=== PATIENT | female | born 1980 | race African-American/Black ===

== ENCOUNTER → 2017-04-28 | Outpatient (REF) | payer OTHER | LOC: M LABNEURO 12:52 | DX: G43.909 Migraine, unspecified, not intractable, without status migrainosus (principal); G40.909 Epilepsy, unspecified, not intractable, without status epilepticus ==

== ENCOUNTER 2017-11-03 19:08 | Emergency (ER) | payer OTHER, MEDICAID ==
[2017-11-03] MEDS: PERCOCET 5MG/325MG TAB PO (20:18)
== END 2017-11-03 20:19 | disposition home or self-care (01) ==
LOC: M ED 19:08
DX: M54.41 Lumbago with sciatica, right side (principal); G89.29 Other chronic pain; M79.7 Fibromyalgia; Z86.69 Personal history of other diseases of the nervous system and sense organs; Z98.0 Intestinal bypass and anastomosis status; Z98.890 Other specified postprocedural states; Z88.8 Allergy status to other drugs, medicaments and biological substances; Z91.040 Latex allergy status; Z79.899 Other long term (current) drug therapy
CPT/HCPCS: 99282

== ENCOUNTER → 2017-12-06 | Outpatient (CLI) | payer OTHER | LOC: M PAIN 10:15 | DX: M79.1 Myalgia (principal); M50.20 Other cervical disc displacement, unspecified cervical region; K21.9 Gastro-esophageal reflux disease without esophagitis; G43.709 Chronic migraine without aura, not intractable, without status migrainosus; Z98.84 Bariatric surgery status; Z87.891 Personal history of nicotine dependence; Z79.899 Other long term (current) drug therapy; Z91.040 Latex allergy status; Z88.8 Allergy status to other drugs, medicaments and biological substances | CPT/HCPCS: G0463 ==

== ENCOUNTER → 2017-12-17 | Outpatient (CLI) | payer OTHER ==
[~2017-12-17] MED LIST: BUPIVACAINE HCL 0.25% 10 ML VIAL As Ordered; BUPIVACAINE HCL 0.25% 30 ML VIAL As Ordered; TRIAMCINOLONE ACETONIDE SUSP 40 MG/ML VIAL (J3301) As Ordered; diazePAM 5 MG TAB As Ordered; oxyCODONE 5MG TAB As Ordered
== END ==
LOC: M PAIN 11:15
DX: M79.10 Myalgia, unspecified site (principal); K21.9 Gastro-esophageal reflux disease without esophagitis; R56.9 Unspecified convulsions; G43.709 Chronic migraine without aura, not intractable, without status migrainosus; Z98.84 Bariatric surgery status; Z87.891 Personal history of nicotine dependence; Z90.49 Acquired absence of other specified parts of digestive tract; Z79.899 Other long term (current) drug therapy; Z91.040 Latex allergy status; Z88.8 Allergy status to other drugs, medicaments and biological substances
CPT/HCPCS: J3301

== ENCOUNTER → 2018-01-07 | Outpatient (CLI) | payer OTHER | LOC: M PAIN 09:30 | DX: M50.20 Other cervical disc displacement, unspecified cervical region (principal); M79.7 Fibromyalgia; R56.9 Unspecified convulsions; G43.909 Migraine, unspecified, not intractable, without status migrainosus; Z79.899 Other long term (current) drug therapy; Z88.8 Allergy status to other drugs, medicaments and biological substances; Z91.040 Latex allergy status; Z98.84 Bariatric surgery status; Z87.891 Personal history of nicotine dependence | CPT/HCPCS: G0463 ==

== ENCOUNTER → 2018-01-24 | Outpatient (CLI) | payer OTHER ==
[~2018-01-24] MED LIST changes: -BUPIVACAINE HCL 0.25% 10 ML VIAL As Ordered; -BUPIVACAINE HCL 0.25% 30 ML VIAL As Ordered; +ISOVUE-M 300 61% 15ML VIAL (Q9967) As Ordered; +LIDOCAINE 1% SDV INJ 30 ML VIAL As Ordered; -TRIAMCINOLONE ACETONIDE SUSP 40 MG/ML VIAL (J3301) As Ordered; +methylPREDNISolone SUSP 40 MG/ML (DEPO-medrol) VIAL (J1030) As Ordered
== END ==
LOC: M PAIN 11:45
DX: G89.29 Other chronic pain (principal); M50.10 Cervical disc disorder with radiculopathy, unspecified cervical region; M79.7 Fibromyalgia; R56.9 Unspecified convulsions; G43.909 Migraine, unspecified, not intractable, without status migrainosus; Z79.899 Other long term (current) drug therapy; Z88.8 Allergy status to other drugs, medicaments and biological substances; Z91.040 Latex allergy status; Z87.891 Personal history of nicotine dependence; Z98.84 Bariatric surgery status
CPT/HCPCS: J1030

== ENCOUNTER → 2018-02-16 | Outpatient (CLI) | payer OTHER | LOC: M PAIN 09:45 | DX: M50.10 Cervical disc disorder with radiculopathy, unspecified cervical region (principal); M50.20 Other cervical disc displacement, unspecified cervical region; M79.7 Fibromyalgia; R56.9 Unspecified convulsions; G43.909 Migraine, unspecified, not intractable, without status migrainosus; Z79.899 Other long term (current) drug therapy; Z88.8 Allergy status to other drugs, medicaments and biological substances; Z91.040 Latex allergy status; Z98.84 Bariatric surgery status; Z87.891 Personal history of nicotine dependence | CPT/HCPCS: G0463 ==

== ENCOUNTER → 2018-03-21 | Outpatient (CLI) | payer OTHER ==
[~2018-03-21] MED LIST changes: +/ACETCOD2T PO; +/HCTZ25TA PO; +AMBI5TAB PO; +BIRTH CONTROL PILL PO; +FAMO20TA PO; +IBUPPOW25 PO; -ISOVUE-M 300 61% 15ML VIAL (Q9967) As Ordered; +KEPP1000 PO; +KEPP500T4 PO; +LIDO1DIS2 TOP; -LIDOCAINE 1% SDV INJ 30 ML VIAL As Ordered; +LISIPOW PO; +LUNE1TAB5 PO; +LYRI75CA PO; +METO1TAB32 PO; +PERC5TAB12 PO; +PREV1CAP PO; +PROZ20CA11 PO; +RELP40TA PO; +ROBA500T PO; +SERO50TA PO; +TIZA2TA PO; +TOPA200T PO; +ZONI100C2 PO; -diazePAM 5 MG TAB As Ordered; -methylPREDNISolone SUSP 40 MG/ML (DEPO-medrol) VIAL (J1030) As Ordered; -oxyCODONE 5MG TAB As Ordered
== END ==
LOC: M PAIN 11:30
PROVIDERS: ATTEND Anesthesiology
DX: Z53.29 Procedure and treatment not carried out because of patient's decision for other reasons (principal)

== ENCOUNTER → 2018-04-01 | Outpatient (CLI) | payer OTHER ==
[~2018-04-01] MED LIST changes: +ISOVUE-M 300 61% 15ML VIAL (Q9967) As Ordered ONE; +LIDOCAINE 1% SDV INJ 30 ML VIAL As Ordered ONE; +diazePAM 5 MG TAB As Ordered ONE; +methylPREDNISolone SUSP 40 MG/ML (DEPO-medrol) VIAL (J1030) As Ordered ONE; +oxyCODONE 5MG TAB As Ordered ONE
--- NOTE | 2018-04-01 15:04 | REP ---
Partial cervical spine series: Two views. History: Cervical epidural injection for pain. 15 seconds of fluoroscopy time is reported. Findings: A sequence of two last image hold fluoroscopically obtained spot radiographs of the cervicothoracic junction document needle position and contrast injection associated with cervical epidural injection procedure. Electronically Signed by Tony Caruso MD 04/01/2018 02:56 P
--- NOTE | 2018-04-18 00:04 | ECWPNPC ---
PATIENT NAME: BRYCE GUTIERREZ : 1980 GENDER: FEMALE VISIT DATE: 04/01/2018 DISCHARGE DATE: 04/01/18 1201 VISIT LOCKED DATE TIME: PHYSICIAN: JOSIE RAMIREZ MD RESOURCE: JOSIE RAMIREZ MD REASON FOR APPOINTMENT 1. SASHA HISTORY OF PRESENT ILLNESS HISTORY OF PRESENT ILLNESS: PAIN THE PATIENT DESCRIBES THE PAIN... FALL RISK SCREENING: SCREENING :NO FALLS IN THE PAST YEAR CURRENT MEDICATIONS TAKING TYLENOL WITH CODEINE #3 300-30 MG TABLET 1 TABLET NEEDED ORALLY EVERY 6 HRS, NOTES: 03/29/18 TAKING KEPPRA 500 MG TABLET 1 TABLET ORALLY EVERY 12 HRS, NOTES: 04/01/18 AM TAKING KEPPRA 1000 MG TABLET 1 TABLET ORALLY QHS, NOTES: 03/31/18 TAKING LYRICA 200 MG CAPSULE 1 CAPSULE ORALLY TWICE A DAY, NOTES: 03/31/18 TAKING AMBIEN 10 MG TABLET 1 TABLET AT BEDTIME NEEDED ORALLY ONCE A DAY, NOTES: NONE LATELY TAKING PROZAC 20 MG CAPSULE 1 CAPSULE IN THE MORNING ONCE A DAY, NOTES: 04/01/18 AM TAKING ZONISAMIDE 100 MG CAPSULE 2 CAPSULES TWICE A DAY, NOTES: 04/01/18 TAKING TIZANIDINE HCL 4 MG TABLET 1 TABLET NEEDED THREE TIMES A DAY, NOTES: 03/29/18 TAKING CALCIUM + D3 600-800 MG-UNIT TABLET 1 TABLET WITH A MEAL TWICE A DAY, NOTES: 04/01/18 TAKING MULTI COMPLETE - CAPSULE ORALLY DAILY, NOTES: 04/01/18 TAKING CLARITIN 10 MG TABLET 1 TABLET ORALLY ONCE A DAY, NOTES: 04/01/18 TAKING AMERGE 2.5 MG TABLET 1 TABLET NEEDED ONE TIME ORALLY ONCE A DAY, NOTES: 03/29/18 TAKING MAY HAVE - - CYANOCOBALAMIN 1000 MCG INJECTION ONCE A WEEK, NOTES: 03/28/18 NOT-TAKING TIZANIDINE HCL 2 MG TABLET 1 TABLET NEEDED THREE TIMES A DAY NOT-TAKING VITAMIN B12 500 MCG TABLET 2 TABLETS ORALLY ONCE A DAY NOT-TAKING ZOLMITRIPTAN 5 MG TABLET 1 TABLET NEEDED ONE TIME ORALLY ONCE A DAY, NOTES: UNSURE OF DOSE NOT-TAKING TRAMADOL HCL 50 MG TABLET 1-2 ORALLY EVERY 6 HRS MDD6 #100 TAB SHOULD LAST 30 DAYS, NOTES: STOPPED TAKING NOT-TAKING RELPAX 40 MG TABLET 1 TABLET NEEDED ONE TIME ORALLY ONCE A DAY NOT-TAKING LIDODERM 5 % PATCH 1 PATCH TO INTACT SKIN REMOVE AFTER 12 HOURS EXTERNALLY ONCE A DAY NOT-TAKING ROBAXIN 500 MG TABLET 1 TABLETS ORALLY BID NOT-TAKING TOPAMAX 200 MG TABLET 1 TABLET ORALLY TWICE A DAY MEDICATION LIST REVIEWED AND RECONCILED WITH THE PATIENT PAST MEDICAL HISTORY FIBROMYALGIA GERD SEIZURES LOW BACK AND NECK PAIN ARTHRITIS IN NECK CHRONIC MIGRAINES ALLERGIES LATEX (FOR ALLERGY USE ONLY): ANAPHYLAXIS: ALLERGY MEPERIDINE HCL: SEIZURES: ALLERGY PHENYTOIN: SEIZURES: ALLERGY GABAPENTIN: DIZZINESS AND ANGER: ALLERGY SURGICAL HISTORY GASTRIC BYPASS 06-27-2015 GALL BLADDER 09-13-2006 TUBAL 08-17-2006 MARLENY -ESTIVEN ([place]) 03/2016 FAMILY HISTORY FATHER: 36 YRS MOTHER: ALIVE 59 YRS 1 BROTHER(S) , 6 SISTER(S) - HEALTHY. 1 SON(S) , 1 DAUGHTER(S) - HEALTHY. MOTHER - GOUT, ARTHRITIS, ASTHMASON- SICKLE CELL ANEMIA. SOCIAL HISTORY GENERAL: TOBACCO USE ARE YOU A:FORMER SMOKER HOW LONG HAS IT BEEN SINCE YOU LAST SMOKED?> 10 YEARS RECREATIONAL DRUG USE: NEVER DRUG USE?NO CAFFEINE: YES CAFFEINE USE?YES HOW OFTEN AND HOW MUCH? ONE CUP OF COFFEE DRUZE [id number] NONE LANGUAGE LANGUAGES SPOKEN:BRITISH LEARNING BARRIERS / SPECIAL NEEDS ABILITY TO UNDERSTAND VERBAL INSTRUCTIONS AVERAGE, ABILITY TO UNDERSTAND WRITTEN INSTRUCTIONS AVERAGE, KNOWLEDGE OF EDUCATIONAL NEEDS/TREATMENT PLAN AVERAGE, LEARNING PREFERENCE NO PREFERENCE, ORIENTED TO PLAN OF CARE: PATIENT, PAIN MANAGEMENT PATIENT. PAIN CLINIC PFS, CLERGY, PUBLIC HEALTH REFERRALS WAS THE PROVIDER NOTIFIED OF ANY PERTINENT INFO?YES HAS THE PATIENT BEEN EDUCATED REGARDING HIS/HER PLAN OF CARE?YES HAS THE PATIENT BEEN EDUCATED REGARDING PAIN, THE RISK FOR PAIN, THE IMPORTANCE OF EFFECTIVE PAIN MANAGEMENT, AND THE PAIN ASSESSMENT PROCESS?YES ADVANCE DIRECTIVE ADVANCE DIRECTIVE DISCUSSED WITH PATIENT:YES NO ADVANCED DIRECTIVE, PT DECLINES HCP INFO AT THIS TIME. REVIEWED WITH PATIENT 12/06/17 1033 JSREVIEWED WITH PATIENT 01/07/18 0955 JSREVIEWED WITH PATIENT 02/16/18 1006 JS. HOSPITALIZATION/MAJOR DIAGNOSTIC PROCEDURE SEIZURES 11-25-2011 REVIEW OF SYSTEMS REVIEWED BY: PROVIDER: . CONSTITUTIONAL: ANY CHANGE IN YOUR MEDICAL CONDITION? NO . CHILLS NO . FEVER NO . INFECTION: DO YOU HAVE NEW INFECTIONS? NO . DO YOU HAVE HISTORY OF MRSA? NO . MUSCULOSKELETAL: ANY NEW PATTERNS OF PAIN OR NUMBNESS? NO . GASTROENTEROLOGY: ANY NEW CHANGE IN BOWEL CONTROL? NO . GENITOURINARY: ANY NEW CHANGE IN BLADDER CONTROL? NO . IS THERE A CHANCE YOU COULD BE ? NO . HEMATOLOGY/LYMPH: DO YOU TAKE ANY BLOOD THINNERS? (FOR EXAMPLE- COUMADIN, PLAVIX, AGGRENOX, PLATEL, PRADAXA, OR XARELTO) NO . WHEN WAS YOUR LAST DOSE? DATE: TIME: . NEUROLOGY: HAVE YOU FALLEN IN THE PAST 12 MONTHS? NO . ANY NEW EXTREMITY NUMBNESS OR WEAKNESS? NO . CARDIOLOGY: DO YOU HAVE A PACEMAKER OR DEFIBRILLATOR? NO . RESPIRATORY: HAVE YOU BEEN SICK IN THE PAST WEEK? NO . FEVER NO . FLU LIKE SYMPTOMS? NO . COUGH NO . INTEGUMENTARY: DO YOU HAVE ANY RASHES OR OPEN SORES? NO . ALLERGIC/IMMUNO: ARE YOU ALLERGIC TO IV DYE? NO . ANY NEW ALLERGIES? NO . PSYCHIATRIC: DO YOU HAVE THOUGHTS OF HURTING YOURSELF OR SOMEONE ELSE? NO . ARE YOU ABUSED, NEGLECTED, OR IN AN UNSAFE ENVIRONMENT? NO . ENDOCRINOLOGY: ARE YOU DIABETIC? NO . OTHER: DO YOU NEED ANY PRESCRIPTIONS? NO . IF YES, PLEASE LIST: ____ . ANY NEW PROBLEMS WITH YOUR MEDICATIONS? NO . WHEN DID YOU LAST EAT? 03/31/18 1830 . WHEN DID YOU LAST DRINK? 04/01/18 0530 . WHAT DID YOU LAST DRINK? WATER . NAME OF PERSON DRIVING YOU HOME? SAVAUN . DO YOU HAVE ANY OTHER QUESTIONS OR CONCERNS NO . VITAL SIGNS WT 174 LBS, HT 61 IN, BMI 32.87 INDEX, BP 136/70 MM HG, HR 84 /MIN, RR 16 /MIN, TEMP 98.6 F, OXYGEN SAT % 98%, NA INITIALS SC 09:25, REVIEWED BY: EM. ASSESSMENTS CERVICAL DISC DISORDER WITH RADICULOPATHY OF CERVICAL REGION - M50.10 (PRIMARY) PROCEDURES PN CERVICAL EPIDURAL PRE PROCEDURE DIAGNOSIS CERVICAL DISC DISORDER WITH RADICULOPATHY POST PROCEDURE DIAGNOSIS CERVICAL DISC DISORDER WITH RADICULOPATHY PROCEDURE CERVICAL EPIDURAL STEROID INJECTION UNDER FLUOROSCOPIC GUIDANCE SURGEON DR. JOSIE RAMIREZ ALL ROUND BUTCHER NONE ANESTHESIA LOCAL PRE PROCEDURE NOTE THE PATIENT HAS A HISTORY OF CHRONIC CERVICAL PAIN. I EVALUATE THE PATIENT AND REVIEWED THE CHART. I WENT OVER THE RISKS, ALTERNATIVES, AND BENEFITS ASSOCIATED WITH THIS PROCEDURE. THE PATIENT WOULD LIKE TO PROCEED AND GIVE CONSENT TO PERFORMED THE PROCEDURE. THE PATIENT DENIES UNEXPLAINABLE WEIGHT LOSS, FEVER, CHILLS, OR NEW CHANGES IN URINARY OR BOWEL CONTROL DESCRIPTION OF PROCEDURE THE PATIENT WAS BROUGHT TO THE PROCEDURE ROOM AND PLACED IN THE PRONE POSITION. THE CERVICOTHORACIC AREA WAS CLEANED WITH BETADINE SOLUTION AND DRAPED ASEPTICALLY. THE PROCEDURE WAS DONE UNDER STERILE CONDITIONS. I CHECKED LATERALITY AND THE LEVEL WHERE THE PROCEDURE WAS GOING TO BE PERFORMED WITH THE PATIENT AND THE SUPPORTING STAFF AT THE MOMENT OF THE TIME OUT IN THE PROCEDURE ROOM. UNDER FLUOROSCOPIC GUIDANCE, THE TARGET WAS SELECTED AT THE INTERLAMINAR LEVEL OF C7-T1. LIDOCAINE WAS USED TO NUMB THE SKIN AND THE SUBCUTANEOUS TISSUE BELOW IT. EPIDURAL TUOHY NEEDLE 17-GAUGE WAS ADVANCED UNDER FLUOROSCOPIC GUIDANCE AND FOLLOWING PATIENT FEEDBACK UNTIL THE EPIDURAL SPACE WAS REACHED 6 CM DEEP INTO THE SKIN BY THE LOSS OF RESISTANCE TECHNIQUE. ISOVUE M DYE 30%, 0.25 ML, WAS INJECTED SHOWING ADEQUATE SPREAD OF THE DYE. THEN, A SOLUTION OF 3 ML OF NORMAL SALINE WITH DEPO-MEDROL 60 MG WAS INJECTED SLOWLY FOLLOWING PATIENT FEEDBACK. THERE WAS NO EVIDENCE OF BLOOD, PARESTHESIA OR CEREBROSPINAL FLUID DURING THE PROCEDURE. THE PATIENT WAS SENT TO THE RECOVERY ROOM. THE PATIENT WAS MOVING THE EXTREMITIES AND DOING WELL. THERE WAS NO COMPLICATION DURING THE PROCEDURE. FLUOROSCOPY TIME WAS 15 SECONDS POST PROCEDURE NOTE THE PATIENT WILL BE SEEN IN A FOLLOW UP IN THE NEXT FEW WEEKS. INSTRUCTIONS WERE GIVEN, QUESTIONS WERE ANSWERED, AND THE PATIENT EXPRESSED UNDERSTANDING AND AGREES WITH THE PLAN. I, SHELLI REYES, DOCUMENTED THE ABOVE INFORMATION ACTING A SCRIBE FOR DR. RAMIREZ. I HAVE REVIEWED THE ABOVE DOCUMENT, WRITTEN BY SHELLI VARGAS AND I VERIFY THAT IT IS ACCURATE. PROCEDURE CODES 6045F RADXPS IN END [id number] PXD [id number] CERVICAL/THORACIC W/ IMAGING DISPOSITION & COMMUNICATION FOLLOW UP 3 WEEKS ELECTRONICALLY SIGNED BY JOSIE RAMIREZ MD, MD ON 04/17/2018 AT 05:58 PM EST DISCLAIMER : THIS IS A VISIT SUMMARY EXTRACTED FROM THE [facility] CHART. IT IS NOT A COPY OF THE [facility] PROGRESS NOTE. MTDD
== END ==
LOC: M PAIN 09:30
PROVIDERS: ATTEND Anesthesiology
DX: G89.29 Other chronic pain (principal); M50.10 Cervical disc disorder with radiculopathy, unspecified cervical region; M79.7 Fibromyalgia; R56.9 Unspecified convulsions; G43.909 Migraine, unspecified, not intractable, without status migrainosus; Z79.899 Other long term (current) drug therapy; Z88.8 Allergy status to other drugs, medicaments and biological substances; Z91.040 Latex allergy status; Z98.84 Bariatric surgery status; Z87.891 Personal history of nicotine dependence
CPT/HCPCS: 62321; J1030; Q9967

== ENCOUNTER → 2018-05-09 | Outpatient (CLI) | payer OTHER ==
[~2018-05-09] MED LIST changes: -ISOVUE-M 300 61% 15ML VIAL (Q9967) As Ordered ONE; -LIDOCAINE 1% SDV INJ 30 ML VIAL As Ordered ONE; -diazePAM 5 MG TAB As Ordered ONE; -methylPREDNISolone SUSP 40 MG/ML (DEPO-medrol) VIAL (J1030) As Ordered ONE; -oxyCODONE 5MG TAB As Ordered ONE
--- NOTE | 2018-05-23 00:36 | ECWPNPC ---
PATIENT NAME: BRYCE GUTIERREZ : 1980 GENDER: FEMALE VISIT DATE: 05/09/2018 DISCHARGE DATE: 05/09/18 1046 VISIT LOCKED DATE TIME: PHYSICIAN: ARAVIND ESPINOZA RESOURCE: ARAVIND ESPINOZA REASON FOR APPOINTMENT 1. POST PROC HISTORY OF PRESENT ILLNESS HISTORY OF PRESENT ILLNESS: HERE FOR POST PROCEDURE F/U.HAD SASHA C7/T1 ON 04/01/18.REPORTING 7-14 DAYS IMPROVEMENT IN NECK AND BILATERAL ARM PAIN POST PROCEDURE.RATING PAIN VAS 9/10. PAIN THE PATIENT DESCRIBES THE PAIN... FALL RISK SCREENING: SCREENING : NO FALLS IN THE PAST YEAR. CURRENT MEDICATIONS TAKING TYLENOL WITH CODEINE #3 300-30 MG TABLET 1 TABLET NEEDED ORALLY EVERY 6 HRS TAKING KEPPRA 500 MG TABLET 1 TABLET ORALLY EVERY 12 HRS TAKING KEPPRA 1000 MG TABLET 1 TABLET ORALLY QHS TAKING LYRICA 200 MG CAPSULE 1 CAPSULE ORALLY TWICE A DAY TAKING PROZAC 20 MG CAPSULE 1 CAPSULE IN THE MORNING ONCE A DAY TAKING ZONISAMIDE 100 MG CAPSULE 2 CAPSULES TWICE A DAY TAKING TIZANIDINE HCL 4 MG TABLET 1 TABLET NEEDED THREE TIMES A DAY TAKING CALCIUM + D3 600-800 MG-UNIT TABLET 1 TABLET WITH A MEAL TWICE A DAY TAKING MULTI COMPLETE - CAPSULE ORALLY DAILY TAKING CLARITIN 10 MG TABLET 1 TABLET ORALLY ONCE A DAY TAKING AMERGE 2.5 MG TABLET 1 TABLET NEEDED ONE TIME ORALLY ONCE A DAY TAKING MAY HAVE - - CYANOCOBALAMIN 1000 MCG INJECTION ONCE A WEEK TAKING CYMBALTA 20 MG CAPSULE DELAYED RELEASE PARTICLES 1 CAPSULE ORALLY BEFORE BEDTIME TAKING SEROQUEL 50 MG TABLET 1 TABLET ORALLY BEFORE BEDTIME NOT-TAKING AMBIEN 10 MG TABLET 1 TABLET AT BEDTIME NEEDED ORALLY ONCE A DAY NOT-TAKING TIZANIDINE HCL 2 MG TABLET 1 TABLET NEEDED THREE TIMES A DAY NOT-TAKING VITAMIN B12 500 MCG TABLET 2 TABLETS ORALLY ONCE A DAY NOT-TAKING ZOLMITRIPTAN 5 MG TABLET 1 TABLET NEEDED ONE TIME ORALLY ONCE A DAY, NOTES: UNSURE OF DOSE NOT-TAKING TRAMADOL HCL 50 MG TABLET 1-2 ORALLY EVERY 6 HRS MDD6 #100 TAB SHOULD LAST 30 DAYS, NOTES: STOPPED TAKING NOT-TAKING RELPAX 40 MG TABLET 1 TABLET NEEDED ONE TIME ORALLY ONCE A DAY NOT-TAKING LIDODERM 5 % PATCH 1 PATCH TO INTACT SKIN REMOVE AFTER 12 HOURS EXTERNALLY ONCE A DAY NOT-TAKING ROBAXIN 500 MG TABLET 1 TABLETS ORALLY BID NOT-TAKING TOPAMAX 200 MG TABLET 1 TABLET ORALLY TWICE A DAY MEDICATION LIST REVIEWED AND RECONCILED WITH THE PATIENT PAST MEDICAL HISTORY FIBROMYALGIA GERD SEIZURES LOW BACK AND NECK PAIN ARTHRITIS IN NECK CHRONIC MIGRAINES ALLERGIES LATEX (FOR ALLERGY USE ONLY): ANAPHYLAXIS: ALLERGY MEPERIDINE HCL: SEIZURES: ALLERGY PHENYTOIN: SEIZURES: ALLERGY GABAPENTIN: DIZZINESS AND ANGER: ALLERGY TRAMADOL HCL: SWEATING & SHAKINESS: ALLERGY SURGICAL HISTORY GASTRIC BYPASS 06-27-2015 GALL BLADDER 09-13-2006 TUBAL 08-17-2006 TUMMY -TUCK ([place]) 03/2016 FAMILY HISTORY FATHER: 36 YRS MOTHER: ALIVE 59 YRS 1 BROTHER(S) , 6 SISTER(S) - HEALTHY. 1 SON(S) , 1 DAUGHTER(S) - HEALTHY. MOTHER - GOUT, ARTHRITIS, ASTHMASON- SICKLE CELL ANEMIA. SOCIAL HISTORY GENERAL: TOBACCO USE ARE YOU A:FORMER SMOKER HOW LONG HAS IT BEEN SINCE YOU LAST SMOKED?> 10 YEARS RECREATIONAL DRUG USE: NEVER DRUG USE?NO CAFFEINE: YES CAFFEINE USE?YES HOW OFTEN AND HOW MUCH? ONE CUP OF COFFEE MORMON [id number] NONE LANGUAGE LANGUAGES SPOKEN:WALLISIAN LEARNING BARRIERS / SPECIAL NEEDS ABILITY TO UNDERSTAND VERBAL INSTRUCTIONS AVERAGE, ABILITY TO UNDERSTAND WRITTEN INSTRUCTIONS AVERAGE, KNOWLEDGE OF EDUCATIONAL NEEDS/TREATMENT PLAN AVERAGE, LEARNING PREFERENCE NO PREFERENCE, ORIENTED TO PLAN OF CARE: PATIENT, PAIN MANAGEMENT PATIENT. PAIN CLINIC PFS, CLERGY, PUBLIC HEALTH REFERRALS WAS THE PROVIDER NOTIFIED OF ANY PERTINENT INFO?YES HAS THE PATIENT BEEN EDUCATED REGARDING HIS/HER PLAN OF CARE?YES HAS THE PATIENT BEEN EDUCATED REGARDING PAIN, THE RISK FOR PAIN, THE IMPORTANCE OF EFFECTIVE PAIN MANAGEMENT, AND THE PAIN ASSESSMENT PROCESS?YES ADVANCE DIRECTIVE ADVANCE DIRECTIVE DISCUSSED WITH PATIENT:YES NO ADVANCED DIRECTIVE, PT DECLINES HCP INFO AT THIS TIME. REVIEWED WITH PATIENT 12/06/17 1033 JSREVIEWED WITH PATIENT 01/07/18 0955 JSREVIEWED WITH PATIENT 02/16/18 1006 JSREVIEWED WITH PATIENT 05/09/18 1005 JS. HOSPITALIZATION/MAJOR DIAGNOSTIC PROCEDURE SEIZURES 11-25-2011 REVIEW OF SYSTEMS REVIEWED BY: PROVIDER: ARAVIND LAYTON . CONSTITUTIONAL: ANY CHANGE IN YOUR MEDICAL CONDITION? NO . CHILLS NO . FEVER NO . INFECTION: DO YOU HAVE NEW INFECTIONS? NO . DO YOU HAVE HISTORY OF MRSA? NO . MUSCULOSKELETAL: ANY NEW PATTERNS OF PAIN OR NUMBNESS? NO . GASTROENTEROLOGY: ANY NEW CHANGE IN BOWEL CONTROL? NO . GENITOURINARY: ANY NEW CHANGE IN BLADDER CONTROL? NO . IS THERE A CHANCE YOU COULD BE ? NO . HEMATOLOGY/LYMPH: DO YOU TAKE ANY BLOOD THINNERS? (FOR EXAMPLE- COUMADIN, PLAVIX, AGGRENOX, PLATEL, PRADAXA, OR XARELTO) NO . WHEN WAS YOUR LAST DOSE? DATE: TIME: . NEUROLOGY: HAVE YOU FALLEN IN THE PAST 12 MONTHS? NO . ANY NEW EXTREMITY NUMBNESS OR WEAKNESS? YES, STATES NEW NUMBNESS, WEAKNESS, AND PAIN TO BILATERAL FOREARMS. STATES IT STARTED YESTERDAY, STATES THROBBING PAIN . CARDIOLOGY: DO YOU HAVE A PACEMAKER OR DEFIBRILLATOR? NO . RESPIRATORY: HAVE YOU BEEN SICK IN THE PAST WEEK? YES, STATES BAD COLD LAST WEEK . FEVER YES, STATES LAST WEEK . FLU LIKE SYMPTOMS? NO . COUGH NO . INTEGUMENTARY: DO YOU HAVE ANY RASHES OR OPEN SORES? NO . ALLERGIC/IMMUNO: ARE YOU ALLERGIC TO IV DYE? NO . ANY NEW ALLERGIES? NO . PSYCHIATRIC: DO YOU HAVE THOUGHTS OF HURTING YOURSELF OR SOMEONE ELSE? NO . ARE YOU ABUSED, NEGLECTED, OR IN AN UNSAFE ENVIRONMENT? NO . ENDOCRINOLOGY: ARE YOU DIABETIC? NO . OTHER: DO YOU NEED ANY PRESCRIPTIONS? NO . IF YES, PLEASE LIST: ____ . ANY NEW PROBLEMS WITH YOUR MEDICATIONS? NO . WHEN DID YOU LAST EAT? ____ . WHEN DID YOU LAST DRINK? ____ . WHAT DID YOU LAST DRINK? ____ . NAME OF PERSON DRIVING YOU HOME? ____ . DO YOU HAVE ANY OTHER QUESTIONS OR CONCERNS NO . VITAL SIGNS WT 174.8 LBS, HT 61 IN, BMI 33.02 INDEX, BP 143/80 MM HG, HR 93 /MIN, RR 16 /MIN, TEMP 97.8 F, OXYGEN SAT % 97%, SAFE IN ENV? (Y/N) YES, NA INITIALS AW 1000, REVIEWED BY: MONAE. EXAMINATION GENERAL EXAMINATION: LUNGS:LUNG SOUNDS ARE CLEAR . HEART:HEART RATE REGULAR . MUSCULOSKELETAL:*, MUSCLE STRENGTH TESTING 5/5 BILATERAL UPPER EXTREMITIES. . CERVICAL+ FOR PAIN WITH PALPATION OF CERVICAL SPINE. + FOR PAIN WITH PALPATION OF CERVICAL PARASPINALS. . DIAGNOSTIC TESTS REVIEWEDCERVICAL MRI. ASSESSMENTS CERVICAL DISC DISORDER WITH RADICULOPATHY OF CERVICAL REGION - M50.10 (PRIMARY) CERVICAL DISC DISPLACEMENT - M50.20 TREATMENT CERVICAL DISC DISORDER WITH RADICULOPATHY OF CERVICAL REGION NOTES: C3/4 SASHA. PREVENTIVE MEDICINE PAIN CLINIC TEACHING: PROCEDURE TEACHING REVIEWED PROCEDURE INFORMATION WITH PATIENT. ALSO REVIEWED PRE-PROCEDURE INSTRUCTIONS WITH PATIENT. PATIENT VERBALIZED AN UNDERSTANDING. SHERRIE RANDOLPH 05/09/2018 10:47:34 AM > . PROCEDURE CODES FA211 ESTABILISHED PATIENT [facility] CHARGE DISPOSITION & COMMUNICATION FOLLOW UP PLEASE GET NCS UPPER EXT NC NEUROLOGY (REASON: C3/4 SASHA) ELECTRONICALLY SIGNED BY KINJAL BROOKS ON 05/22/2018 AT 10:52 AM EDT DISCLAIMER : THIS IS A VISIT SUMMARY EXTRACTED FROM THE [facility] MD CHART. IT IS NOT A COPY OF THE [facility] [facility] PROGRESS NOTE. JEREMIE
== END ==
LOC: M PAIN 10:00
PROVIDERS: ATTEND Nurse Practitioner Family
DX: M50.10 Cervical disc disorder with radiculopathy, unspecified cervical region (principal); M50.20 Other cervical disc displacement, unspecified cervical region; M79.7 Fibromyalgia; R56.9 Unspecified convulsions; G43.909 Migraine, unspecified, not intractable, without status migrainosus; Z79.899 Other long term (current) drug therapy; Z88.5 Allergy status to narcotic agent; Z88.8 Allergy status to other drugs, medicaments and biological substances; Z91.040 Latex allergy status; Z87.891 Personal history of nicotine dependence; Z98.84 Bariatric surgery status

== ENCOUNTER → 2018-05-18 | Outpatient (CLI) | payer OTHER ==
[~2018-05-18] MED LIST changes: +ISOVUE-M 300 61% 15ML VIAL (Q9967) As Ordered ONE; +LIDOCAINE 1% SDV INJ 30 ML VIAL As Ordered ONE; +diazePAM 5 MG TAB As Ordered ONE; +methylPREDNISolone SUSP 40 MG/ML (DEPO-medrol) VIAL (J1030) As Ordered ONE; +oxyCODONE 5MG TAB As Ordered ONE
--- NOTE | 2018-05-18 15:05 | REP ---
CERVICAL SPINE LIMITED STUDY THREE VIEWS. HISTORY: Cervical epidural injection procedure for pain. 17 seconds of fluoroscopy time is reported. FINDINGS: A sequence of three last image hold fluoroscopically obtained spot radiographs of the cervicothoracic junction document needle position and contrast injection associated with cervical epidural injection procedure. Electronically Signed by Tony Caruso MD 05/18/2018 05:07 P
--- NOTE | 2018-05-29 00:15 | ECWPNPC ---
PATIENT NAME: BRYCE GUTIERREZ : 1980 GENDER: FEMALE VISIT DATE: 05/18/2018 DISCHARGE DATE: 05/18/18 1418 VISIT LOCKED DATE TIME: PHYSICIAN: JOSIE ARMIREZ MD RESOURCE: JOSIE RAMIREZ MD REASON FOR APPOINTMENT 1. SASHA HISTORY OF PRESENT ILLNESS HISTORY OF PRESENT ILLNESS: PAIN THE PATIENT DESCRIBES THE PAIN... FALL RISK SCREENING: SCREENING : NO FALLS IN THE PAST YEAR. CURRENT MEDICATIONS TAKING TYLENOL WITH CODEINE #3 300-30 MG TABLET 1 TABLET NEEDED ORALLY EVERY 6 HRS, NOTES: 6 DAYS AGO TAKING KEPPRA 500 MG TABLET 1 TABLET ORALLY EVERY 12 HRS, NOTES: 05/18 529 TAKING KEPPRA 1000 MG TABLET 1 TABLET ORALLY QHS, NOTES: 05/17 2029 TAKING LYRICA 200 MG CAPSULE 1 CAPSULE ORALLY TWICE A DAY, NOTES: 05/18 529 TAKING PROZAC 20 MG CAPSULE 1 CAPSULE IN THE MORNING ONCE A DAY, NOTES: 05/18 529 TAKING ZONISAMIDE 100 MG CAPSULE 2 CAPSULES TWICE A DAY, NOTES: 05/18 529 TAKING TIZANIDINE HCL 4 MG TABLET 1 TABLET NEEDED THREE TIMES A DAY, NOTES: 05/18 529 TAKING CALCIUM + D3 600-800 MG-UNIT TABLET 1 TABLET WITH A MEAL TWICE A DAY, NOTES: 05/18 529 TAKING MULTI COMPLETE - CAPSULE ORALLY DAILY, NOTES: 05/18 529 TAKING CLARITIN 10 MG TABLET 1 TABLET ORALLY ONCE A DAY, NOTES: 05/18 529 TAKING AMERGE 2.5 MG TABLET 1 TABLET NEEDED ONE TIME ORALLY ONCE A DAY, NOTES: NEVER TAKING MAY HAVE - - CYANOCOBALAMIN 1000 MCG INJECTION ONCE A WEEK, NOTES: 05/18 529 TAKING CYMBALTA 20 MG CAPSULE DELAYED RELEASE PARTICLES 1 CAPSULE ORALLY BEFORE BEDTIME, NOTES: 05/17 2029 TAKING SEROQUEL 50 MG TABLET 1 TABLET ORALLY BEFORE BEDTIME, NOTES: 05/17 2029 DISCONTINUED AMBIEN 10 MG TABLET 1 TABLET AT BEDTIME NEEDED ORALLY ONCE A DAY DISCONTINUED TIZANIDINE HCL 2 MG TABLET 1 TABLET NEEDED THREE TIMES A DAY DISCONTINUED VITAMIN B12 500 MCG TABLET 2 TABLETS ORALLY ONCE A DAY DISCONTINUED ZOLMITRIPTAN 5 MG TABLET 1 TABLET NEEDED ONE TIME ORALLY ONCE A DAY, NOTES: UNSURE OF DOSE DISCONTINUED TRAMADOL HCL 50 MG TABLET 1-2 ORALLY EVERY 6 HRS MDD6 #100 TAB SHOULD LAST 30 DAYS, NOTES: STOPPED TAKING DISCONTINUED RELPAX 40 MG TABLET 1 TABLET NEEDED ONE TIME ORALLY ONCE A DAY DISCONTINUED LIDODERM 5 % PATCH 1 PATCH TO INTACT SKIN REMOVE AFTER 12 HOURS EXTERNALLY ONCE A DAY DISCONTINUED ROBAXIN 500 MG TABLET 1 TABLETS ORALLY BID DISCONTINUED TOPAMAX 200 MG TABLET 1 TABLET ORALLY TWICE A DAY MEDICATION LIST REVIEWED AND RECONCILED WITH THE PATIENT PAST MEDICAL HISTORY FIBROMYALGIA GERD SEIZURES LOW BACK AND NECK PAIN ARTHRITIS IN NECK CHRONIC MIGRAINES ALLERGIES LATEX (FOR ALLERGY USE ONLY): ANAPHYLAXIS: ALLERGY MEPERIDINE HCL: SEIZURES: ALLERGY PHENYTOIN: SEIZURES: ALLERGY GABAPENTIN: DIZZINESS AND ANGER: ALLERGY TRAMADOL HCL: SWEATING & SHAKINESS: ALLERGY SURGICAL HISTORY GASTRIC BYPASS 06-27-2015 GALL BLADDER 09-13-2006 TUBAL 08-17-2006 TUMMY -TUCK ([place]) 03/2016 FAMILY HISTORY FATHER: 36 YRS, [place] MOTHER: ALIVE 59 YRS 1 BROTHER(S) , 6 SISTER(S) - HEALTHY. 1 SON(S) , 1 DAUGHTER(S) - HEALTHY. MOTHER - GOUT, ARTHRITIS, ASTHMASON- SICKLE CELL ANEMIA, ASTHMADAUGHTER-ASTHMA. SOCIAL HISTORY GENERAL: TOBACCO USE ARE YOU A:FORMER SMOKER HOW LONG HAS IT BEEN SINCE YOU LAST SMOKED?> 10 YEARS LATEX QUESTIONNAIRE LATEX ALLERGY : HAVE YOU EVER DEVELOPED ANY TYPE OF REACTION AFTER HANDLING LATEX PRODUCTS SUCH RUBBER GLOVES, CONDOMS, DIAPHRAGMS, BALLOONS, SOCKS, OR UNDERWEAR?YES - PLEASE INDICATE :CONDOMS, BALLOONS, DIAPHRAGMS LATEX ALLERGY : HAVE YOU EVER DEVELOPED ANY TYPE OF REACTION DURING OR AFTER DENTAL APPOINTMENT, VAGINAL/RECTAL EXAMINATION, SURGICAL PROCEDURE, OR ANY OTHER EXPOSURE?NO LATEX RISK : HAVE YOU EVER HAD ANY DIFFICULTY BREATHING OR HIVES AFTER EATING OR HANDLING ANY FRUITS, OR VEGETABLES; SUCH KIWI, BANANAS, STONE FRUITS, OR CHESTNUTSNO LATEX RISK : DO YOU HAVE A PREVIOUS PERSONAL HISTORY OF MORE THAN NINE SURGERIES, SPINA BIFIDA, OR REPEATED CATHERTIZATIONS? NO LATEX RISK : ARE YOU FREQUENTLY EXPOSED TO LATEX PRODUCTS IN YOUR OCCUPATION?NO DATE ASKED : 05/18/2018 ALCOHOL SCREENING DID YOU HAVE A DRINK CONTAINING ALCOHOL IN THE PAST YEAR?NO POINTS0 INTERPRETATIONNEGATIVE RECREATIONAL DRUG USE: NEVER DRUG USE?NO CAFFEINE: YES CAFFEINE USE?YES HOW OFTEN AND HOW MUCH? ONE CUP OF COFFEE RASTAFARI [id number] NONE LANGUAGE LANGUAGES SPOKEN:THAI EDUCATION LEVEL OF EDUCATION:COLLEGE BACHELOR'S LEARNING BARRIERS / SPECIAL NEEDS ABILITY TO UNDERSTAND VERBAL INSTRUCTIONS AVERAGE, ABILITY TO UNDERSTAND WRITTEN INSTRUCTIONS AVERAGE, KNOWLEDGE OF EDUCATIONAL NEEDS/TREATMENT PLAN AVERAGE, LEARNING PREFERENCE NO PREFERENCE, ORIENTED TO PLAN OF CARE: PATIENT, PAIN MANAGEMENT PATIENT. DOMESTIC VIOLENCE DO YOU FEEL SAFE IN YOUR ENVIRONMENT?YES DIET: REGULAR. EXERCISE: WALKS, , RESISTANCE TRAINING, RUNNING. PAIN CLINIC PFS, CLERGY, PUBLIC HEALTH REFERRALS WAS THE PROVIDER NOTIFIED OF ANY PERTINENT INFO?YES HAS THE PATIENT BEEN EDUCATED REGARDING HIS/HER PLAN OF CARE?YES HAS THE PATIENT BEEN EDUCATED REGARDING PAIN, THE RISK FOR PAIN, THE IMPORTANCE OF EFFECTIVE PAIN MANAGEMENT, AND THE PAIN ASSESSMENT PROCESS?YES ADVANCE DIRECTIVE ADVANCE DIRECTIVE DISCUSSED WITH PATIENT:YES 05/18/18 PT DOES NOT HAVE ANY ADVANCED DIRECTIVE, AND SHE DECLINES INFORMATION ON HCP AT THIS TIME. AD HOSPITALIZATION/MAJOR DIAGNOSTIC PROCEDURE SEIZURES 11-25-2011 SURGERY CHILDBIRTH X 2 REVIEW OF SYSTEMS REVIEWED BY: PROVIDER: . CONSTITUTIONAL: ANY CHANGE IN YOUR MEDICAL CONDITION? NO . CHILLS NO . FEVER NO . INFECTION: DO YOU HAVE NEW INFECTIONS? NO . DO YOU HAVE HISTORY OF MRSA? NO . MUSCULOSKELETAL: ANY NEW PATTERNS OF PAIN OR NUMBNESS? YES, INCREASE IN PAIN AND NUMBNESS OVER THE PAST 2 WEEKS . GASTROENTEROLOGY: ANY NEW CHANGE IN BOWEL CONTROL? NO . GENITOURINARY: ANY NEW CHANGE IN BLADDER CONTROL? NO . IS THERE A CHANCE YOU COULD BE ? NO . HEMATOLOGY/LYMPH: DO YOU TAKE ANY BLOOD THINNERS? (FOR EXAMPLE- COUMADIN, PLAVIX, AGGRENOX, PLATEL, PRADAXA, OR XARELTO) NO . WHEN WAS YOUR LAST DOSE? DATE: TIME: . NEUROLOGY: HAVE YOU FALLEN IN THE PAST 12 MONTHS? YES X 2, LEGS GAVE OUT ON HER . ANY NEW EXTREMITY NUMBNESS OR WEAKNESS? NO . CARDIOLOGY: DO YOU HAVE A PACEMAKER OR DEFIBRILLATOR? NO . RESPIRATORY: HAVE YOU BEEN SICK IN THE PAST WEEK? YES, HASN'T BEEN SLEEPING DUE TO FIBROMYALGIA BOTHERING HER. DENIES FEVER, COUGH OR CHILLS . FEVER NO . FLU LIKE SYMPTOMS? NO . COUGH NO . INTEGUMENTARY: DO YOU HAVE ANY RASHES OR OPEN SORES? NO . ALLERGIC/IMMUNO: ARE YOU ALLERGIC TO IV DYE? NO . ANY NEW ALLERGIES? NO . PSYCHIATRIC: DO YOU HAVE THOUGHTS OF HURTING YOURSELF OR SOMEONE ELSE? NO . ARE YOU ABUSED, NEGLECTED, OR IN AN UNSAFE ENVIRONMENT? NO . ENDOCRINOLOGY: ARE YOU DIABETIC? NO . OTHER: DO YOU NEED ANY PRESCRIPTIONS? NO . IF YES, PLEASE LIST: ____ . ANY NEW PROBLEMS WITH YOUR MEDICATIONS? NO . WHEN DID YOU LAST EAT? 05/18 1999 . WHEN DID YOU LAST DRINK? 05/18 0500 . WHAT DID YOU LAST DRINK? WATER . NAME OF PERSON DRIVING YOU HOME? SAVOUN-FRIEND . DO YOU HAVE ANY OTHER QUESTIONS OR CONCERNS NO PT HAS NOT HAD ANY VACCINES IN THE PAST 30 DAYS . VITAL SIGNS WT 172.6 LBS, HT 61 IN, BMI 32.61 INDEX, BP 135/91 MM HG, HR 63 /MIN, RR 16 /MIN, TEMP 98.5 F, OXYGEN SAT % 100%, NA INITIALS SC 11:41. ASSESSMENTS CERVICAL DISC DISORDER WITH RADICULOPATHY OF CERVICAL REGION - M50.10 (PRIMARY) TREATMENT CERVICAL DISC DISORDER WITH RADICULOPATHY OF CERVICAL REGION [facility] FLUORO GUIDE SPINE INJECTION (PAIN)[id number] PROCEDURES PN CERVICAL EPIDURAL PRE PROCEDURE DIAGNOSIS CERVICAL DISC DISORDER WITH RADICULOPATHY POST PROCEDURE DIAGNOSIS CERVICAL DISC DISORDER WITH RADICULOPATHY PROCEDURE CERVICAL EPIDURAL STEROID INJECTION UNDER FLUOROSCOPIC GUIDANCE SURGEON DR. JOSIE RAMIREZ TITLE ONE TEACHER NONE ANESTHESIA LOCAL PRE PROCEDURE NOTE THE PATIENT HAS A HISTORY OF CHRONIC CERVICAL PAIN. I EVALUATE THE PATIENT AND REVIEWED THE CHART. I WENT OVER THE RISKS, ALTERNATIVES, AND BENEFITS ASSOCIATED WITH THIS PROCEDURE. THE PATIENT WOULD LIKE TO PROCEED AND GIVE CONSENT TO PERFORMED THE PROCEDURE. THE PATIENT DENIES UNEXPLAINABLE WEIGHT LOSS, FEVER, CHILLS, OR NEW CHANGES IN URINARY OR BOWEL CONTROL DESCRIPTION OF PROCEDURE THE PATIENT WAS BROUGHT TO THE PROCEDURE ROOM AND PLACED IN THE PRONE POSITION. THE CERVICOTHORACIC AREA WAS CLEANED WITH BETADINE SOLUTION AND DRAPED ASEPTICALLY. THE PROCEDURE WAS DONE UNDER STERILE CONDITIONS. I CHECKED LATERALITY AND THE LEVEL WHERE THE PROCEDURE WAS GOING TO BE PERFORMED WITH THE PATIENT AND THE SUPPORTING STAFF AT THE MOMENT OF THE TIME OUT IN THE PROCEDURE ROOM. UNDER FLUOROSCOPIC GUIDANCE, THE TARGET WAS SELECTED AT THE INTERLAMINAR LEVEL OF C7-T1. LIDOCAINE WAS USED TO NUMB THE SKIN AND THE SUBCUTANEOUS TISSUE BELOW IT. EPIDURAL TUOHY NEEDLE 17-GAUGE WAS ADVANCED UNDER FLUOROSCOPIC GUIDANCE AND FOLLOWING PATIENT FEEDBACK UNTIL THE EPIDURAL SPACE WAS REACHED 6 CM DEEP INTO THE SKIN BY THE LOSS OF RESISTANCE TECHNIQUE. ISOVUE M DYE 30%, 0.25 ML, WAS INJECTED SHOWING ADEQUATE SPREAD OF THE DYE. THEN, A SOLUTION OF 3 ML OF NORMAL SALINE WITH DEPO-MEDROL 60 MG WAS INJECTED SLOWLY FOLLOWING PATIENT FEEDBACK. THERE WAS NO EVIDENCE OF BLOOD, PARESTHESIA OR CEREBROSPINAL FLUID DURING THE PROCEDURE. THE PATIENT WAS SENT TO THE RECOVERY ROOM. THE PATIENT WAS MOVING THE EXTREMITIES AND DOING WELL. THERE WAS NO COMPLICATION DURING THE PROCEDURE. FLUOROSCOPY TIME WAS 17 SECONDS POST PROCEDURE NOTE THE PATIENT WILL BE SEEN IN A FOLLOW UP IN THE NEXT FEW WEEKS. INSTRUCTIONS WERE GIVEN, QUESTIONS WERE ANSWERED, AND THE PATIENT EXPRESSED UNDERSTANDING AND AGREES WITH THE PLAN. I, SHELLI REYES, DOCUMENTED THE ABOVE INFORMATION ACTING A SCRIBE FOR DR. RAMIREZ. I HAVE REVIEWED THE ABOVE DOCUMENT, WRITTEN BY SHELLI GOMEZIBSophy AND I VERIFY THAT IT IS ACCURATE. PROCEDURE CODES 6045F RADXPS IN END [id number] PXD [id number] CERVICAL/THORACIC W/ IMAGING DISPOSITION & COMMUNICATION FOLLOW UP 3 WEEKS ELECTRONICALLY SIGNED BY JOSIE RAMIREZ MD, MD ON 05/28/2018 AT 07:57 PM EDT DISCLAIMER : THIS IS A VISIT SUMMARY EXTRACTED FROM THE [employer] CHART. IT IS NOT A COPY OF THE [employer] PROGRESS NOTE. MTDD
== END ==
LOC: M PAIN 11:45
PROVIDERS: ATTEND Anesthesiology
DX: G89.29 Other chronic pain (principal); M50.10 Cervical disc disorder with radiculopathy, unspecified cervical region; M79.7 Fibromyalgia; R56.9 Unspecified convulsions; G43.909 Migraine, unspecified, not intractable, without status migrainosus; Z79.899 Other long term (current) drug therapy; Z88.5 Allergy status to narcotic agent; Z88.8 Allergy status to other drugs, medicaments and biological substances; Z91.040 Latex allergy status; Z98.84 Bariatric surgery status; Z87.891 Personal history of nicotine dependence
CPT/HCPCS: 62321; J1030; Q9967

== ENCOUNTER → 2018-06-06 | Outpatient (CLI) | payer OTHER ==
[~2018-06-06] MED LIST changes: -/ACETCOD2T PO; -/HCTZ25TA PO; +ACET1TAB15 PO; +HYDR-3644 PO; -ISOVUE-M 300 61% 15ML VIAL (Q9967) As Ordered ONE; -LIDOCAINE 1% SDV INJ 30 ML VIAL As Ordered ONE; -diazePAM 5 MG TAB As Ordered ONE; -methylPREDNISolone SUSP 40 MG/ML (DEPO-medrol) VIAL (J1030) As Ordered ONE; -oxyCODONE 5MG TAB As Ordered ONE
--- NOTE | 2018-06-22 01:04 | ECWPNPC ---
PATIENT NAME: BRYCE GUTIERREZ : 1980 GENDER: FEMALE VISIT DATE: 06/06/2018 DISCHARGE DATE: 06/06/18 1233 VISIT LOCKED DATE TIME: PHYSICIAN: ARAVIND ESPINOZA RESOURCE: ARAVIND ESPINOZA REASON FOR APPOINTMENT 1. POST SASHA HISTORY OF PRESENT ILLNESS HISTORY OF PRESENT ILLNESS: HERE FOR POST PROCEDURE F/U.HAD SASHA ON 05/18/18.HAD SIGNIFICANT IMPROVEMENT POST PROCEDURE.REPORTING LESS INTENSE NECK PAIN THAT CONTINUES TODAY.CONTINUES WITH MIGRAINE HEADACHES.RATING PAIN VAS 7/10. PAIN THE PATIENT DESCRIBES THE PAIN... FALL RISK SCREENING: SCREENING :NO FALLS REPORTED IN THE LAST YEAR CURRENT MEDICATIONS TAKING TYLENOL WITH CODEINE #3 300-30 MG TABLET 1 TABLET NEEDED ORALLY EVERY 6 HRS TAKING KEPPRA 500 MG TABLET 1 TABLET ORALLY EVERY 12 HRS TAKING KEPPRA 1000 MG TABLET 1 TABLET ORALLY QHS TAKING LYRICA 200 MG CAPSULE 1 CAPSULE ORALLY TWICE A DAY TAKING PROZAC 20 MG CAPSULE 1 CAPSULE IN THE MORNING ONCE A DAY TAKING ZONISAMIDE 100 MG CAPSULE 2 CAPSULES TWICE A DAY TAKING TIZANIDINE HCL 4 MG TABLET 1 TABLET NEEDED THREE TIMES A DAY TAKING CALCIUM + D3 600-800 MG-UNIT TABLET 1 TABLET WITH A MEAL TWICE A DAY TAKING MULTI COMPLETE - CAPSULE ORALLY DAILY TAKING CLARITIN 10 MG TABLET 1 TABLET ORALLY ONCE A DAY TAKING AMERGE 2.5 MG TABLET 1 TABLET NEEDED ONE TIME ORALLY ONCE A DAY TAKING MAY HAVE - - CYANOCOBALAMIN 1000 MCG INJECTION ONCE A WEEK TAKING CYMBALTA 20 MG CAPSULE DELAYED RELEASE PARTICLES 1 CAPSULE ORALLY BEFORE BEDTIME TAKING SEROQUEL 50 MG TABLET 1 TABLET ORALLY BEFORE BEDTIME MEDICATION LIST REVIEWED AND RECONCILED WITH THE PATIENT PAST MEDICAL HISTORY FIBROMYALGIA GERD SEIZURES LOW BACK AND NECK PAIN ARTHRITIS IN NECK CHRONIC MIGRAINES ALLERGIES LATEX (FOR ALLERGY USE ONLY): ANAPHYLAXIS - ALLERGY MEPERIDINE HCL: SEIZURES - ALLERGY PHENYTOIN: SEIZURES - ALLERGY GABAPENTIN: DIZZINESS AND ANGER - ALLERGY TRAMADOL HCL: SWEATING & SHAKINESS - ALLERGY SURGICAL HISTORY GASTRIC BYPASS 06-27-2015 GALL BLADDER - TUBAL 08-17-2006 TUMMY -TUCK ([place]) 03/2016 FAMILY HISTORY FATHER: 36 YRS, FROM [place] MOTHER: ALIVE 59 YRS 1 BROTHER(S) , 6 SISTER(S) - HEALTHY. 1 SON(S) , 1 DAUGHTER(S) - HEALTHY. MOTHER - GOUT, ARTHRITIS, ASTHMA\NSON- SICKLE CELL ANEMIA, ASTHMA\NDAUGHTER-ASTHMA. SOCIAL HISTORY GENERAL: TOBACCO USE ARE YOU A:FORMER SMOKER HOW LONG HAS IT BEEN SINCE YOU LAST SMOKED?> 10 YEARS LATEX QUESTIONNAIRE LATEX ALLERGY : HAVE YOU EVER DEVELOPED ANY TYPE OF REACTION AFTER HANDLING LATEX PRODUCTS SUCH RUBBER GLOVES, CONDOMS, DIAPHRAGMS, BALLOONS, SOCKS, OR UNDERWEAR?YES - PLEASE INDICATE :CONDOMS, BALLOONS, DIAPHRAGMS LATEX ALLERGY : HAVE YOU EVER DEVELOPED ANY TYPE OF REACTION DURING OR AFTER DENTAL APPOINTMENT, VAGINAL/RECTAL EXAMINATION, SURGICAL PROCEDURE, OR ANY OTHER EXPOSURE?NO LATEX RISK : HAVE YOU EVER HAD ANY DIFFICULTY BREATHING OR HIVES AFTER EATING OR HANDLING ANY FRUITS, OR VEGETABLES; SUCH KIWI, BANANAS, STONE FRUITS, OR CHESTNUTSNO LATEX RISK : DO YOU HAVE A PREVIOUS PERSONAL HISTORY OF MORE THAN NINE SURGERIES, SPINA BIFIDA, OR REPEATED CATHERTIZATIONS? NO LATEX RISK : ARE YOU FREQUENTLY EXPOSED TO LATEX PRODUCTS IN YOUR OCCUPATION?NO DATE ASKED : 05/18/2018 ALCOHOL SCREENING DID YOU HAVE A DRINK CONTAINING ALCOHOL IN THE PAST YEAR?NO POINTS0 INTERPRETATIONNEGATIVE RECREATIONAL DRUG USE: NEVER DRUG USE?NO CAFFEINE: YES CAFFEINE USE?YES HOW OFTEN AND HOW MUCH? ONE CUP OF COFFEE YARSANI [id number] NONE LANGUAGE LANGUAGES SPOKEN:TRISTANIAN EDUCATION LEVEL OF EDUCATION:COLLEGE BACHELOR'S LEARNING BARRIERS / SPECIAL NEEDS ABILITY TO UNDERSTAND VERBAL INSTRUCTIONS AVERAGE, ABILITY TO UNDERSTAND WRITTEN INSTRUCTIONS AVERAGE, KNOWLEDGE OF EDUCATIONAL NEEDS/TREATMENT PLAN AVERAGE, LEARNING PREFERENCE NO PREFERENCE, ORIENTED TO PLAN OF CARE: PATIENT, PAIN MANAGEMENT PATIENT. DOMESTIC VIOLENCE DO YOU FEEL SAFE IN YOUR ENVIRONMENT?YES DIET: REGULAR. EXERCISE: WALKS, , RESISTANCE TRAINING, RUNNING. PAIN CLINIC PFS, CLERGY, PUBLIC HEALTH REFERRALS WAS THE PROVIDER NOTIFIED OF ANY PERTINENT INFO?YES HAS THE PATIENT BEEN EDUCATED REGARDING HIS/HER PLAN OF CARE?YES HAS THE PATIENT BEEN EDUCATED REGARDING PAIN, THE RISK FOR PAIN, THE IMPORTANCE OF EFFECTIVE PAIN MANAGEMENT, AND THE PAIN ASSESSMENT PROCESS?YES ADVANCE DIRECTIVE ADVANCE DIRECTIVE DISCUSSED WITH PATIENT:YES PATIENT DECLINES HCP INFORMATION. REVIEWED WITH PATIENT 06/06/18 1214 JS. HOSPITALIZATION/MAJOR DIAGNOSTIC PROCEDURE SEIZURES 11-25-2011 SURGERY CHILDBIRTH X 2 REVIEW OF SYSTEMS REVIEWED BY: PROVIDER: ARAVIND LAYTON . CONSTITUTIONAL: ANY CHANGE IN YOUR MEDICAL CONDITION? NO . CHILLS NO . FEVER NO . INFECTION: DO YOU HAVE NEW INFECTIONS? NO . DO YOU HAVE HISTORY OF MRSA? NO . MUSCULOSKELETAL: ANY NEW PATTERNS OF PAIN OR NUMBNESS? NO . GASTROENTEROLOGY: ANY NEW CHANGE IN BOWEL CONTROL? NO . GENITOURINARY: ANY NEW CHANGE IN BLADDER CONTROL? NO . IS THERE A CHANCE YOU COULD BE ? NO . HEMATOLOGY/LYMPH: DO YOU TAKE ANY BLOOD THINNERS? (FOR EXAMPLE- COUMADIN, PLAVIX, AGGRENOX, PLATEL, PRADAXA, OR XARELTO) NO . WHEN WAS YOUR LAST DOSE? DATE: TIME: . NEUROLOGY: HAVE YOU FALLEN IN THE PAST 12 MONTHS? YES, PATIENT STATES SHE PASSED OUT/FELL ON 05/27/18. STATES POSSIBLE SEIZURE, WILL DISCUSS WITH NEUROLOGIST. PATIENT STATES NO ED VISIT, NO TESTING/IMAGING . ANY NEW EXTREMITY NUMBNESS OR WEAKNESS? NO . CARDIOLOGY: DO YOU HAVE A PACEMAKER OR DEFIBRILLATOR? NO . RESPIRATORY: HAVE YOU BEEN SICK IN THE PAST WEEK? NO . FEVER NO . FLU LIKE SYMPTOMS? NO . COUGH NO . INTEGUMENTARY: DO YOU HAVE ANY RASHES OR OPEN SORES? NO . ALLERGIC/IMMUNO: ARE YOU ALLERGIC TO IV DYE? NO . ANY NEW ALLERGIES? NO . PSYCHIATRIC: DO YOU HAVE THOUGHTS OF HURTING YOURSELF OR SOMEONE ELSE? NO . ARE YOU ABUSED, NEGLECTED, OR IN AN UNSAFE ENVIRONMENT? NO . ENDOCRINOLOGY: ARE YOU DIABETIC? NO . OTHER: DO YOU NEED ANY PRESCRIPTIONS? NO . IF YES, PLEASE LIST: ____ . ANY NEW PROBLEMS WITH YOUR MEDICATIONS? NO . WHEN DID YOU LAST EAT? ____ . WHEN DID YOU LAST DRINK? ____ . WHAT DID YOU LAST DRINK? ____ . NAME OF PERSON DRIVING YOU HOME? ____ . DO YOU HAVE ANY OTHER QUESTIONS OR CONCERNS YES, RIGHT HIP POPS IN AND OUT OF PLACE, IS PAINFUL TO PATIENT . VITAL SIGNS WT 172.6 LBS, HT 61 IN, BMI 32.61 INDEX, BP 115/81 MM HG, HR 70 /MIN, RR 16 /MIN, TEMP 97.6 F, OXYGEN SAT % 100%, SAFE IN ENV? (Y/N) YES, NA INITIALS AW 1157, REVIEWED BY: JS. EXAMINATION GENERAL EXAMINATION: GENERAL APPEARANCE:AWAKE,ALERT ,PLEAASANT . PSYCHAFFECT NORMAL . LUNGS:LUNG MOE ARE CLEAR TO AUSCULTATION BILATERALLY. GOOD MOVEMENT OF AIR . HEART:S1, S2 IN A REGULAR RATE AND RHYTHM. NO SIGNIFICANT MURMURS, RUBS OR GALLOPS NOTED . ASSESSMENTS CERVICAL DISC DISORDER WITH RADICULOPATHY OF CERVICAL REGION - M50.10 (PRIMARY) CERVICAL DISC DISPLACEMENT - M50.20 TREATMENT CERVICAL DISC DISORDER WITH RADICULOPATHY OF CERVICAL REGION NOTES: CONTINUE HOME EXCERSISE AND STRETCHING. PROCEDURE CODES FA211 ESTABILISHED PATIENT [facility] CHARGE DISPOSITION & COMMUNICATION FOLLOW UP 2 MONTHS ELECTRONICALLY SIGNED BY KINJAL BROOKS ON 06/20/2018 AT 01:19 PM EDT DISCLAIMER : THIS IS A VISIT SUMMARY EXTRACTED FROM THE [employer] CHART. IT IS NOT A COPY OF THE [employer] PROGRESS NOTE. JEREMIE
== END ==
LOC: M PAIN 11:45
PROVIDERS: ATTEND Nurse Practitioner Family
DX: M50.10 Cervical disc disorder with radiculopathy, unspecified cervical region (principal); M50.20 Other cervical disc displacement, unspecified cervical region; Z79.891 Long term (current) use of opiate analgesic; Z79.899 Other long term (current) drug therapy; Z98.84 Bariatric surgery status; Z87.891 Personal history of nicotine dependence; Z91.040 Latex allergy status; Z88.5 Allergy status to narcotic agent; Z88.8 Allergy status to other drugs, medicaments and biological substances

== ENCOUNTER → 2018-06-21 | Outpatient (CLI) | payer OTHER ==
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
== END ==
LOC: M PAIN 09:00
PROVIDERS: ATTEND Nurse Practitioner Family
DX: M54.40 Lumbago with sciatica, unspecified side (principal); G89.29 Other chronic pain; M79.7 Fibromyalgia; R56.9 Unspecified convulsions; G43.909 Migraine, unspecified, not intractable, without status migrainosus; Z98.84 Bariatric surgery status; Z87.891 Personal history of nicotine dependence; Z91.040 Latex allergy status; Z88.5 Allergy status to narcotic agent; Z88.8 Allergy status to other drugs, medicaments and biological substances; Z79.899 Other long term (current) drug therapy

== ENCOUNTER → 2018-07-22 | Outpatient (CLI) | payer OTHER ==
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
== END ==
LOC: M PAIN 10:30
PROVIDERS: ATTEND Nurse Practitioner Family
DX: M50.10 Cervical disc disorder with radiculopathy, unspecified cervical region (principal); M50.20 Other cervical disc displacement, unspecified cervical region; G89.29 Other chronic pain; Z98.84 Bariatric surgery status; M79.7 Fibromyalgia; R56.9 Unspecified convulsions; G43.709 Chronic migraine without aura, not intractable, without status migrainosus; Z87.891 Personal history of nicotine dependence; Z88.5 Allergy status to narcotic agent; Z88.8 Allergy status to other drugs, medicaments and biological substances; Z91.040 Latex allergy status; Z79.899 Other long term (current) drug therapy

== ENCOUNTER → 2018-08-16 | Outpatient (CLI) | payer OTHER ==
--- NOTE | 2018-08-22 10:38 | SLEEPMSLT ---
DATE OF POLYSOMNOGRAPHY: 08/16/2018 REFERRING PHYSICIAN: Donavan Medrano. INTERPRETATION: Overnight polysomnography was performed for evaluation of excessive daytime sleepiness and fatigue. A total of 7 hours and 29 minutes of data was reviewed with prolonged sleep latency and poor sleep efficiency. Moderate snoring was observed. There were no significant respiratory events, arousals, periodic limb movements of sleep during the study. EEG remained normal throughout. EKG revealed normal sinus rhythm. The oxygen saturation remained 92% or above throughout the study. CONCLUSION: Primary snoring, no polysomnographic evidence of obstructive sleep apnea syndrome or periodic limb movements of sleep. MULTIPLE SLEEP LATENCY TEST: DATE OF STUDY: 08/17/2018 INTERPRETATION: After overnight diagnostic sleep study, a multiple sleep latency test was performed. Patient was given four opportunities to nap. Sleep onset latencies were 0.5, 6.0 minutes in first two naps. Patient did not fall asleep in the rest of the naps. Mean sleep latency was 11.6 minutes. No REM sleep was recorded in any of the naps. CONCLUSION: This multiple sleep latency test is within normal limits.
== END ==
LOC: M SLEEP 19:49
PROVIDERS: ATTEND Psychiatry & Neurology Neurology
DX: G47.00 Insomnia, unspecified (principal); F39 Unspecified mood [affective] disorder

== ENCOUNTER → 2018-10-12 | Outpatient (CLI) | payer OTHER ==
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
== END ==
LOC: M PAIN 10:45
PROVIDERS: ATTEND Nurse Practitioner Family
DX: M54.40 Lumbago with sciatica, unspecified side (principal); M50.10 Cervical disc disorder with radiculopathy, unspecified cervical region; M50.20 Other cervical disc displacement, unspecified cervical region; M79.7 Fibromyalgia; K21.9 Gastro-esophageal reflux disease without esophagitis; R56.9 Unspecified convulsions; G43.709 Chronic migraine without aura, not intractable, without status migrainosus; D25.9 Leiomyoma of uterus, unspecified; Z98.84 Bariatric surgery status; Z87.891 Personal history of nicotine dependence; Z79.899 Other long term (current) drug therapy; Z91.040 Latex allergy status; Z88.5 Allergy status to narcotic agent; Z88.8 Allergy status to other drugs, medicaments and biological substances

== ENCOUNTER → 2018-11-29 | Outpatient (CLI) | payer OTHER ==
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
== END ==
LOC: M PAIN 11:15
PROVIDERS: ATTEND Nurse Practitioner Family
DX: M54.40 Lumbago with sciatica, unspecified side (principal); M50.10 Cervical disc disorder with radiculopathy, unspecified cervical region; G89.29 Other chronic pain; M79.7 Fibromyalgia; G43.909 Migraine, unspecified, not intractable, without status migrainosus; Z98.84 Bariatric surgery status; Z87.891 Personal history of nicotine dependence; Z88.5 Allergy status to narcotic agent; Z88.8 Allergy status to other drugs, medicaments and biological substances; Z91.040 Latex allergy status; Z79.899 Other long term (current) drug therapy

== ENCOUNTER 2019-02-13 16:20 | Emergency (ER) | payer OTHER ==
[~2019-02-13] VITALS: Ht 185.4 cm; Wt 79.1 kg
--- NOTE | 2019-02-13 17:38 | ECGEPIP ---
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
--- NOTE | 2019-02-13 18:14 | REPVR ---
PROCEDURE INFORMATION: Exam: CT Head Without Contrast Exam date and time: 02/13/2019 5:23 PM Age: 38 years old Clinical history: Altered mental status/memory loss TECHNIQUE: Imaging protocol: Computed tomography of the head without contrast. Radiation optimization: All CT scans at this facility use at least one of these dose optimization techniques: automated exposure control; mA and/or kV adjustment per patient size (includes targeted exams where dose is matched to clinical indication); or iterative reconstruction. COMPARISON: CT Head without contrast 08/21/2013 11:26 AM FINDINGS: Brain: There is a rounded 9.3 mm hyperdensity in the left suprasellar cistern which is not present on the previous examination. Primary consideration would be aneurysm, but the appearance is nonspecific. Broad differential diagnosis would include such entities as meningioma or, sarcoid, or hemorrhage within a small lesion in this location. Correlation with gadolinium-enhanced MRI and MR angiogram would be suggested. On axial image 12, there is subtle hyperdensity in the left frontal lobe sulcus which could potentially reflect a small subarachnoid hemorrhage. Short term CT followup recommended. No abnormal extra-axial fluid collections are identified. Wells-white differentiation is preserved throughout. Midline shift: No midline shift. Ventricles: No hydrocephalus. Bones/joints: Unremarkable. No acute fracture. Sinuses: The visualized sinuses are unremarkable. Mastoid air cells: There is no mastoid effusion detected. IMPRESSION: 1. Rounded 9.3 mm hyperdense lesion in the left suprasellar cistern, nonspecific, with broad differential diagnosis. Correlation with gadolinium-enhanced brain MRI and MR angiogram would be suggested. 2. Cannot exclude a small subarachnoid hemorrhage in the left frontal lobe. Short-term CT followup recommended. The ordering physician SREEKANTH Gilbert was contacted by phone at 6:07 PM EST, 02/13/2019 with these results. Electronically signed by: Liseth Rizo On 02/13/2019 18:14:05 PM
--- NOTE | 2019-02-13 18:19 | REPVR ---
PROCEDURE INFORMATION: Exam: CT Cervical Spine Without Contrast Exam date and time: 02/13/2019 5:23 PM Age: 38 years old Clinical history: Other: AMS; Additional info: Altered mental status TECHNIQUE: Imaging protocol: Computed tomography images of the cervical spine without contrast. Radiation optimization: All CT scans at this facility use at least one of these dose optimization techniques: automated exposure control; mA and/or kV adjustment per patient size (includes targeted exams where dose is matched to clinical indication); or iterative reconstruction. COMPARISON: CT Spine,cervical w/o contrast 08/21/2013 11:26 AM FINDINGS: Vertebrae: No acute fracture. Normal alignment. Discs/Spinal canal/Neural foramina: No significant central canal stenosis demonstrated by CT. No neural foraminal narrowing. Lungs: Lung apices are normal. IMPRESSION: No acute findings. Electronically signed by: Liseth Rizo On 02/13/2019 18:18:41 PM
[2019-02-13 18:42] LABS: BASO # 0.1 10^3/uL (0.0-0.2); BASO % 0.6 % (0.0-1.0); EOS # 0.1 10^3/uL (0.0-0.5); EOS % 1.2 % (0.0-3.0); HEMATOCRIT 47.1 % (36.0-47.0); HEMOGLOBIN 15.5 g/dl (12.0-15.5); LYMPH # 2.6 10^3/uL (1.5-5.0); LYMPH % 31.5 % (24.0-44.0); MEAN CORPUSCULAR HEMOGLOBIN 28.5 pg (27.0-33.0); MEAN CORPUSCULAR HGB CONC 32.9 g/dl (32.0-36.5); MEAN CORPUSCULAR VOLUME 86.7 fl (80.0-96.0); MONO # 0.5 10^3/uL (0.0-0.8); MONO % 5.7 % (0.0-5.0); NEUTROPHILS # 5.1 10^3/uL (1.5-8.5); NEUTROPHILS % 60.6 % (36.0-66.0); PLATELET COUNT, AUTOMATED 382 10^3/uL (150-450); RED BLOOD COUNT 5.43 10^6/uL (4.00-5.40); WHITE BLOOD COUNT 8.4 10^3/uL (4.0-10.0)
[2019-02-13] MEDS ORDERED: PROHANCE 279.3MG/ML 5ML VIAL (A9576) As Ordered ONE (18:48)
[2019-02-13] MEDS ORDERED: PROHANCE 279.3MG/ML 15ML VIAL (A9576) As Ordered ONE (18:48)
[2019-02-13 19:21] LABS: ACETAMINOPHEN LEVEL < 2.0 UG/ML (10.0-30.0); BLOOD UREA NITROGEN 6 MG/DL (7-18); CALCIUM LEVEL 9.5 MG/DL (8.5-10.1); CARBON DIOXIDE LEVEL 21 MEQ/L (21-32); CHLORIDE LEVEL 110 MEQ/L (98-107); ETHYL ALCOHOL (ETHANOL) < 0.003 % (0.000-0.010); GLOMERULAR FILTRATION RATE > 60.0 (>60); GLUCOSE, FASTING 80 MG/DL (70-100); POTASSIUM SERUM 3.4 MEQ/L (3.5-5.1); SALICYLATE LEVEL < 1.7 MG/DL (5.0-30.0); SODIUM LEVEL 142 MEQ/L (136-145)
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
[2019-02-13] MEDS ORDERED: NARA2.5T PO (21:05)
[2019-02-13] MEDS ORDERED: METOCLOPRAMIDE INJ 10MG/2ML VIAL (J2765) IV ONE (21:15)
--- NOTE | 2019-02-13 21:19 | REPVR ---
PROCEDURE INFORMATION: Exam: MR Angiogram Head Without Contrast, Arteries Exam date and time: 02/13/2019 6:15 PM Age: 38 years old Clinical history: Abnormal findings; Abnormal CT of the head; Patient HX: CT ? aneurysm; Additional info: ? Lesion TECHNIQUE: Imaging protocol: MR angiogram head without contrast. Exam focused on the arteries. 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 Right anterior cerebral artery: Unremarkable. No occlusion or significant stenosis. No aneurysm. Right middle cerebral artery: Unremarkable. No occlusion or significant stenosis. No aneurysm. Right posterior cerebral artery: Unremarkable. No occlusion or significant stenosis. No aneurysm. Right vertebral artery: Unremarkable. No occlusion or significant stenosis. No aneurysm. Left internal carotid artery: Unremarkable. Intracranial segment is patent with no significant stenosis. No aneurysm. Left anterior cerebral artery: Unremarkable. No occlusion or significant stenosis. No aneurysm. Left middle cerebral artery: Unremarkable. No occlusion or significant stenosis. No aneurysm. Left posterior cerebral artery: Unremarkable. No occlusion or significant stenosis. No aneurysm. Left vertebral artery: Unremarkable. No occlusion or significant stenosis. No aneurysm. Basilar artery: Unremarkable. No occlusion or significant stenosis. No aneurysm. IMPRESSION: Apparent feeding vessel arising from the right supraclinoid ICA, supplying the previously described peripherally enhancing, 9 mm meningioma versus thrombosed aneurysm. Electronically signed by: Liseth Rizo On 02/13/2019 21:18:54 PM
[2019-02-13 23:11] VITALS: BP 124/88
--- NOTE | 2019-02-14 11:37 | ED PDOC ---
Post-Departure Follow-Up dr woods and dr nixon faxed formal report of mri brain for [facility] Prudence Funez MD Feb 14, 2019 11:37
== END 2019-02-13 23:12 | disposition home or self-care (01) ==
LOC: EDBD 16:20 → M ED 16:20
DX: S00.93XA Contusion of unspecified part of head, initial encounter (principal); V43.52XA Car driver injured in collision with other type car in traffic accident, initial encounter; Y92.410 Unspecified street and highway as the place of occurrence of the external cause; G93.9 Disorder of brain, unspecified; R56.9 Unspecified convulsions; Z98.84 Bariatric surgery status; Z88.8 Allergy status to other drugs, medicaments and biological substances; Z88.5 Allergy status to narcotic agent; Z91.040 Latex allergy status; Z79.899 Other long term (current) drug therapy
CPT/HCPCS: 36415; 70450; 70544; 70553; 72125; 80048; 80180; 85025; 93005; 93041; 94760; 96374; 99284; A9576; G0480; J2765

== ENCOUNTER → 2019-03-13 | Outpatient (REF) | payer OTHER, MEDICAID ==
[~2019-03-13] MED LIST changes: +NARA2.5T PO
[2019-03-17 08:49] LABS: LEVETIRACETAM (KEPPRA) 11.8 ug/mL (10.0-40.0)
== END ==
LOC: M LABNEURO 13:25
PROVIDERS: ATTEND Physician Assistant Medical
DX: R56.9 Unspecified convulsions (principal)

== ENCOUNTER → 2019-11-07 | Outpatient (CLI) | payer OTHER, MEDICAID ==
[~2019-11-07] MED LIST changes: +MULTCAP PO; +OYST1TAB PO; +PREG150C PO; +ZONI100C17 PO; -ZONI100C2 PO
[2019-11-07 19:34] LABS: APPEARANCE, URINE HAZY (CLEAR); BACTERIA, URINE AUTO 1+ (NEGATIVE); BILIRUBIN, URINE AUTO NEGATIVE (NEGATIVE); BLOOD, URINE BLOOD NEGATIVE (NEGATIVE); COLOR, URINE YELLOW (YELLOW); GLUCOSE, URINE (UA) AUTO NEGATIVE (NEGATIVE); KETONE, URINE AUTO NEGATIVE (NEGATIVE); LEUKOCYTE ESTERASE, URINE AUTO NEGATIVE (NEGATIVE); MUCUS, URINE SMALL (NEGATIVE); NITRITE, URINE AUTO NEGATIVE (NEGATIVE); PROTEIN, URINE AUTO NEGATIVE (NEGATIVE); RBC, URINE AUTO 0 /HPF (0-3); SPECIFIC GRAVITY URINE AUTO 1.012 (1.002-1.035); SQUAMOUS EPITHELIAL CELL UR AU 2 /HPF (0-6); UROBILINOGEN, URINE AUTO 0.2 mg/dL (0.0-2.0); WBC, URINE AUTO 2 /HPF (0-3)
[2019-11-07 19:40] LABS: BASO # 0.1 10^3/uL (0.0-0.2); BASO % 0.9 % (0.0-1.0); EOS # 0.2 10^3/uL (0.0-0.5); EOS % 2.2 % (0.0-3.0); HEMATOCRIT 35.5 % (36.0-47.0); HEMOGLOBIN 12.2 g/dl (12.0-15.5); LYMPH # 2.1 10^3/uL (1.5-5.0); LYMPH % 29.9 % (24.0-44.0); MEAN CORPUSCULAR HEMOGLOBIN 29.5 pg (27.0-33.0); MEAN CORPUSCULAR HGB CONC 34.4 g/dl (32.0-36.5); MEAN CORPUSCULAR VOLUME 85.7 fl (80.0-96.0); MONO # 0.4 10^3/uL (0.0-0.8); MONO % 6.4 % (0.0-5.0); NEUTROPHILS # 4.2 10^3/uL (1.5-8.5); NEUTROPHILS % 60.5 % (36.0-66.0); PLATELET COUNT, AUTOMATED 234 10^3/uL (150-450); RED BLOOD COUNT 4.14 10^6/uL (4.00-5.40); WHITE BLOOD COUNT 6.9 10^3/uL (4.0-10.0)
[2019-11-07 19:48] LABS: INR 1.03; PROTHROMBIN TIME 13.7 SECONDS (11.8-14.0)
[2019-11-07 19:49] LABS: PARTIAL THROMBOPLASTIN TIME 28.3 SECONDS (25.0-38.4)
[2019-11-07 20:08] LABS: BLOOD UREA NITROGEN 7 MG/DL (7-18); CALCIUM LEVEL 8.8 MG/DL (8.5-10.1); CARBON DIOXIDE LEVEL 23 MEQ/L (21-32); CHLORIDE LEVEL 114 MEQ/L (98-107); GLOMERULAR FILTRATION RATE > 60.0 (>60); GLUCOSE, FASTING 82 MG/DL (70-100); POTASSIUM SERUM 4.5 MEQ/L (3.5-5.1); SODIUM LEVEL 144 MEQ/L (136-145)
== END ==
LOC: M LRY 12:19
PROVIDERS: ATTEND Nurse Practitioner Family
DX: I67.1 Cerebral aneurysm, nonruptured (principal)

== ENCOUNTER → 2020-02-13 | Outpatient (CLI) | payer OTHER, MEDICAID ==
[2020-02-13 17:23] LABS: BASO # 0.1 10^3/uL (0.0-0.2); EOS # 0.3 10^3/uL (0.0-0.5); HEMATOCRIT 37.8 % (36.0-47.0); HEMOGLOBIN 12.5 g/dl (12.0-15.5); LYMPH # 2.5 10^3/uL (1.5-5.0); LYMPH % 40.2 % (24.0-44.0); MEAN CORPUSCULAR HEMOGLOBIN 28.7 pg (27.0-33.0); MEAN CORPUSCULAR HGB CONC 33.1 g/dl (32.0-36.5); MEAN CORPUSCULAR VOLUME 86.7 fl (80.0-96.0); MONO # 0.3 10^3/uL (0.0-0.8); NEUTROPHILS # 3.1 10^3/uL (1.5-8.5); NEUTROPHILS % 49.5 % (36.0-66.0); PLATELET COUNT, AUTOMATED 337 10^3/uL (150-450); RED BLOOD COUNT 4.36 10^6/uL (4.00-5.40); WHITE BLOOD COUNT 6.2 10^3/uL (4.0-10.0)
[2020-02-13 17:35] LABS: ALBUMIN 3.6 GM/DL (3.2-5.2); ALT/SGPT 23 U/L (12-78); BILIRUBIN,TOTAL 0.2 MG/DL (0.2-1.0); BLOOD UREA NITROGEN 9 MG/DL (7-18); CALCIUM LEVEL 9.2 MG/DL (8.5-10.1); CARBON DIOXIDE LEVEL 26 MEQ/L (21-32); CHLORIDE LEVEL 110 MEQ/L (98-107); CREATININE FOR GFR 0.84 MG/DL (0.55-1.30); GLOMERULAR FILTRATION RATE > 60.0 (>60); GLUCOSE, FASTING 83 MG/DL (70-100); POTASSIUM SERUM 3.7 MEQ/L (3.5-5.1); SODIUM LEVEL 141 MEQ/L (136-145); TOTAL PROTEIN 6.7 GM/DL (6.4-8.2)
[2020-02-16 21:07] LABS: LEVETIRACETAM (KEPPRA) 49.2 ug/mL (10.0-40.0)
== END ==
LOC: M WUC 14:20
PROVIDERS: ATTEND Physician Assistant Medical
DX: G40.89 Other seizures (principal)

== ENCOUNTER → 2020-03-05 | Outpatient (CLI) | payer OTHER, MEDICAID ==
[2020-03-11 12:06] LABS: LEVETIRACETAM (KEPPRA) 21.1 ug/mL (10.0-40.0)
== END ==
LOC: M WUC 17:46
PROVIDERS: ATTEND Physician Assistant Medical
DX: R56.9 Unspecified convulsions (principal); Z51.81 Encounter for therapeutic drug level monitoring; Z79.899 Other long term (current) drug therapy

== ENCOUNTER → 2020-08-06 | Outpatient (CLI) | payer OTHER, MEDICAID | LOC: M PLALAB 11:56 | PROVIDERS: ATTEND Physician Assistant Medical | DX: R56.9 Unspecified convulsions (principal) ==

== ENCOUNTER 2020-09-05 19:26 | Emergency (ER) | payer OTHER, MEDICAID ==
[~2020-09-05] VITALS: Ht 154.9 cm; Wt 56.4 kg
[2020-09-05] MEDS ORDERED: KEPP1TAB PO (19:43)
[2020-09-05 20:37] LABS: HCG, SERUM QUALITATIVE NEGATIVE (NEGATIVE)
--- NOTE | 2020-09-05 20:48 | REPVR ---
PROCEDURE INFORMATION: Exam: CT Head Without Contrast Exam date and time: 09/05/2020 8:10 PM Age: 40 years old Clinical indication: Altered mental status/memory loss; Confusion or disorientation TECHNIQUE: Imaging protocol: Computed tomography of the head without contrast. Radiation optimization: All CT scans at this facility use at least one of these dose optimization techniques: automated exposure control; mA and/or kV adjustment per patient size (includes targeted exams where dose is matched to clinical indication); or iterative reconstruction. 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 No intracranial hemorrhage or extra-axial fluid collection. No evidence of mass effect or midline shift. Wells-white matter differentiation is intact. Cerebral ventricles: No ventriculomegaly. Paranasal sinuses: Visualized sinuses are unremarkable. No fluid levels. Mastoid air cells: Unremarkable. Bones/joints: No acute osseus lesion or fracture. Soft tissues: Unremarkable. IMPRESSION: 1. No acute intracranial pathology. 2. Chronic findings, as above. Electronically signed by: Rick Pierce On 09/05/2020 20:48:25 PM
--- NOTE | 2020-09-05 20:59 | REPVR ---
PROCEDURE INFORMATION: Exam: CT Cervical Spine Without Contrast Exam date and time: 09/05/2020 8:10 PM Age: 40 years old Clinical indication: Other: Altered; Additional info: Altered mental status TECHNIQUE: Imaging protocol: Computed tomography images of the cervical spine without contrast. Radiation optimization: All CT scans at this facility use at least one of these dose optimization techniques: automated exposure control; mA and/or kV adjustment per patient size (includes targeted exams where dose is matched to clinical indication); or iterative reconstruction. COMPARISON: CT Spine,cervical w/o contrast 02/13/2019 5:21 PM FINDINGS: Bones/joints: The cervical lordosis is normal. Vertebral body heights are maintained. No locked or perched facets. No acute cervical spine fracture. The dens is intact. Atlantoaxial intervals are normal. Discs/Spinal canal/Neural foramina: Disc space heights are normal. Lungs: Lung apices are clear. Soft tissues: Unremarkable. IMPRESSION: No acute cervical spine fracture. Electronically signed by: Rick Pierce On 09/05/2020 20:59:15 PM
[2020-09-05 21:01] LABS: ALT/SGPT 39 U/L (12-78); BILIRUBIN,DIRECT 0.1 MG/DL (0.0-0.2); BILIRUBIN,TOTAL 0.4 MG/DL (0.2-1.0); BLOOD UREA NITROGEN 12 MG/DL (7-18); CALCIUM LEVEL 9.1 MG/DL (8.5-10.1); CARBON DIOXIDE LEVEL 25 MEQ/L (21-32); CHLORIDE LEVEL 106 MEQ/L (98-107); CPK CREATINE PHOSPHOKINASE 342 U/L (26-192); CREATININE FOR GFR 1.29 MG/DL (0.55-1.30); GLOMERULAR FILTRATION RATE 59.7 (>60); GLUCOSE, FASTING 82 MG/DL (70-100); POTASSIUM SERUM 4.1 MEQ/L (3.5-5.1); SODIUM LEVEL 139 MEQ/L (136-145); THYROID STIMULATING HORMONE 0.812 uIU/ML (0.358-3.740); TOTAL PROTEIN 7.2 GM/DL (6.4-8.2)
[2020-09-05 21:13] LABS: BASO # 0.1 10^3/uL (0.0-0.2); BASO % 0.8 % (0.0-1.0); EOS # 0.2 10^3/uL (0.0-0.5); EOS % 1.4 % (0.0-3.0); HEMATOCRIT 40.3 % (36.0-47.0); HEMOGLOBIN 13.9 g/dl (12.0-15.5); LYMPH # 1.4 10^3/uL (1.5-5.0); LYMPH % 13.5 % (24.0-44.0); MEAN CORPUSCULAR HEMOGLOBIN 29.4 pg (27.0-33.0); MEAN CORPUSCULAR HGB CONC 34.5 g/dl (32.0-36.5); MEAN CORPUSCULAR VOLUME 85.4 fl (80.0-96.0); MONO # 0.7 10^3/uL (0.0-0.8); MONO % 6.7 % (2.0-8.0); NEUTROPHILS # 8.1 10^3/uL (1.5-8.5); NEUTROPHILS % 77.1 % (36.0-66.0); PLATELET COUNT, AUTOMATED 344 10^3/uL (150-450); RED BLOOD COUNT 4.72 10^6/uL (4.00-5.40); WHITE BLOOD COUNT 10.5 10^3/uL (4.0-10.0)
--- NOTE | 2020-09-05 21:26 | ECGEPIP ---
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
[2020-09-05 22:45] VITALS: BP 119/80
[2020-09-05 23:53] LABS: AMPHETAMINES LEVEL URINE NEGATIVE (NEGATIVE); BARBITURATES URINE NEGATIVE (NEGATIVE); BENZODIAZEPINES URINE POSITIVE (NEGATIVE); CANNABINOIDS URINE POSITIVE (NEGATIVE); COCAINE METABOLITE URINE NEGATIVE (NEGATIVE); METHADONE URINE NEGATIVE (NEGATIVE); OPIATES URINE NEGATIVE (NEGATIVE); PHENCYCLIDINE URINE NEGATIVE (NEGATIVE)
== END 2020-09-05 23:41 | disposition home or self-care (01) ==
LOC: M ED 19:26
DX: G40.909 Epilepsy, unspecified, not intractable, without status epilepticus (principal); F12.129 Cannabis abuse with intoxication, unspecified; R00.0 Tachycardia, unspecified; F32.9 Major depressive disorder, single episode, unspecified; M79.7 Fibromyalgia; Z98.84 Bariatric surgery status; F17.290 Nicotine dependence, other tobacco product, uncomplicated; Z79.899 Other long term (current) drug therapy; Z88.8 Allergy status to other drugs, medicaments and biological substances; Z88.5 Allergy status to narcotic agent; Z91.040 Latex allergy status

== ENCOUNTER 2020-09-13 17:51 | Emergency (ER) | payer MEDICAID, OTHER ==
[~2020-09-13] VITALS: Ht 154.9 cm; Wt 56.4 kg
[~2020-09-13 17:51] MED LIST changes: +KEPP1TAB PO
[2020-09-13] MEDS ORDERED: MIDAZOLAM INJ 2MG/2ML VIAL (J2250 PER 1MG) IV ONE (18:05)
[2020-09-13] MEDS ORDERED: NS 1,000 ML IV ONE (18:15)
[2020-09-13 18:24] LABS: BASO # 0.1 10^3/uL (0.0-0.2); BASO % 1.2 % (0.0-1.0); EOS # 0.4 10^3/uL (0.0-0.5); EOS % 4.2 % (0.0-3.0); HEMATOCRIT 40.2 % (36.0-47.0); HEMOGLOBIN 13.8 g/dl (12.0-15.5); LYMPH # 3.1 10^3/uL (1.5-5.0); LYMPH % 32.8 % (24.0-44.0); MEAN CORPUSCULAR HEMOGLOBIN 29.5 pg (27.0-33.0); MEAN CORPUSCULAR HGB CONC 34.3 g/dl (32.0-36.5); MEAN CORPUSCULAR VOLUME 85.9 fl (80.0-96.0); MONO % 10.1 % (2.0-8.0); NEUTROPHILS # 4.9 10^3/uL (1.5-8.5); NEUTROPHILS % 51.4 % (36.0-66.0); PLATELET COUNT, AUTOMATED 340 10^3/uL (150-450); RED BLOOD COUNT 4.68 10^6/uL (4.00-5.40); WHITE BLOOD COUNT 9.5 10^3/uL (4.0-10.0)
[2020-09-13] MEDS ORDERED: LORA-674 PO (18:34)
[2020-09-13] MEDS ORDERED: AIMO70IN2 IM (18:34)
[2020-09-13] MEDS ORDERED: OXYC1TAB23 PO (18:34)
[2020-09-13] MEDS ORDERED: DULO1CAP6 PO (18:34)
[2020-09-13] MEDS ORDERED: ASPI-531 PO (18:34)
[2020-09-13] MEDS ORDERED: PROP10TA56 PO (18:34)
[2020-09-13] MEDS ORDERED: CYAN1000VL PO (18:34)
[2020-09-13] MEDS ORDERED: FOLI1TAB11 PO (18:34)
[2020-09-13] MEDS ORDERED: PREG100C PO (18:34)
[2020-09-13] MEDS ORDERED: ZOLP5TAB PO (18:34)
[2020-09-13 18:46] LABS: HCG, SERUM QUALITATIVE NEGATIVE (NEGATIVE)
[2020-09-13 18:58] LABS: BLOOD UREA NITROGEN 8 MG/DL (7-18); CALCIUM LEVEL 8.9 MG/DL (8.5-10.1); CARBON DIOXIDE LEVEL 20 MEQ/L (21-32); CHLORIDE LEVEL 111 MEQ/L (98-107); CREATININE FOR GFR 0.98 MG/DL (0.55-1.30); GLOMERULAR FILTRATION RATE > 60.0 (>60); GLUCOSE, FASTING 76 MG/DL (70-100); POTASSIUM SERUM 4.6 MEQ/L (3.5-5.1); SODIUM LEVEL 142 MEQ/L (136-145)
[2020-09-13 18:59] LABS: ACETAMINOPHEN LEVEL < 2.0 UG/ML (10.0-30.0); ALBUMIN 3.7 GM/DL (3.2-5.2); ALT/SGPT 45 U/L (12-78); BILIRUBIN,DIRECT < 0.1 MG/DL (0.0-0.2); BILIRUBIN,TOTAL 0.2 MG/DL (0.2-1.0); CPK CREATINE PHOSPHOKINASE 190 U/L (26-192); ETHYL ALCOHOL (ETHANOL) 0.003 % (0.000-0.010); SALICYLATE LEVEL 1.7 MG/DL (5.0-30.0); THYROID STIMULATING HORMONE 0.484 uIU/ML (0.358-3.740)
[2020-09-13 18:59] LABS: AMPHETAMINES LEVEL URINE NEGATIVE (NEGATIVE); BARBITURATES URINE NEGATIVE (NEGATIVE); BENZODIAZEPINES URINE NEGATIVE (NEGATIVE); CANNABINOIDS URINE POSITIVE (NEGATIVE); COCAINE METABOLITE URINE NEGATIVE (NEGATIVE); METHADONE URINE NEGATIVE (NEGATIVE); OPIATES URINE NEGATIVE (NEGATIVE); PHENCYCLIDINE URINE NEGATIVE (NEGATIVE)
[2020-09-13 20:15] VITALS: BP 126/75
--- NOTE | 2020-09-13 20:36 | ECGEPIP ---
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
== END 2020-09-13 20:27 | disposition home or self-care (01) ==
LOC: EDBD 17:51 → M ED 17:51
DX: F19.129 Other psychoactive substance abuse with intoxication, unspecified (principal); G40.909 Epilepsy, unspecified, not intractable, without status epilepticus; F32.9 Major depressive disorder, single episode, unspecified; M79.7 Fibromyalgia; Z79.899 Other long term (current) drug therapy; Z91.040 Latex allergy status; Z88.5 Allergy status to narcotic agent; Z88.8 Allergy status to other drugs, medicaments and biological substances
CPT/HCPCS: 80048; 80076; 80143; 80180; 80307; 82077; 82550; 84443; 84703; 85025; 93005; 93041; 94760; 96361; 96374; 99285; J2250

== ENCOUNTER → 2020-11-04 | Outpatient (CLI) | payer OTHER, MEDICAID ==
[~2020-11-04] MED LIST changes: +AIMO70IN2 IM; +ASPI-531 PO; +CYAN1000VL PO; +DULO1CAP6 PO; +FOLI1TAB11 PO; +LORA-674 PO; +OXYC1TAB23 PO; +PREG100C PO; +PROP10TA56 PO; +ZOLP5TAB PO
[2020-11-04 11:35] LABS: BASO # 0.1 10^3/uL (0.0-0.2); BASO % 1.3 % (0.0-1.0); EOS # 0.3 10^3/uL (0.0-0.5); EOS % 6.9 % (0.0-3.0); HEMATOCRIT 39.7 % (36.0-47.0); HEMOGLOBIN 13.5 g/dl (12.0-15.5); LYMPH # 1.3 10^3/uL (1.5-5.0); LYMPH % 28.3 % (24.0-44.0); MEAN CORPUSCULAR HEMOGLOBIN 28.6 pg (27.0-33.0); MEAN CORPUSCULAR VOLUME 84.1 fl (80.0-96.0); MONO # 0.4 10^3/uL (0.0-0.8); MONO % 9.3 % (2.0-8.0); NEUTROPHILS # 2.5 10^3/uL (1.5-8.5); PLATELET COUNT, AUTOMATED 339 10^3/uL (150-450); RED BLOOD COUNT 4.72 10^6/uL (4.00-5.40); WHITE BLOOD COUNT 4.6 10^3/uL (4.0-10.0)
[2020-11-04 12:03] LABS: ERYTHROCYTE SEDIMENTATION RATE 13 mm/hr (0-20)
[2020-11-04 12:49] LABS: ALBUMIN 3.7 GM/DL (3.2-5.2); ALT/SGPT 35 U/L (12-78); BILIRUBIN,TOTAL 0.3 MG/DL (0.2-1.0); BLOOD UREA NITROGEN 14 MG/DL (7-18); CALCIUM LEVEL 8.9 MG/DL (8.5-10.1); CARBON DIOXIDE LEVEL 23 MEQ/L (21-32); CHLORIDE LEVEL 111 MEQ/L (98-107); CREATININE FOR GFR 0.92 MG/DL (0.55-1.30); GLOMERULAR FILTRATION RATE > 60.0 (>60); GLUCOSE, FASTING 87 MG/DL (70-100); POTASSIUM SERUM 4.1 MEQ/L (3.5-5.1); RHEUMATOID FACTOR QUANT < 10.0 IU/ML (<15.0); SODIUM LEVEL 141 MEQ/L (136-145); THYROID STIMULATING HORMONE 0.288 uIU/ML (0.358-3.740)
[2020-11-06 09:50] LABS: DRVV SCREEN 43.3 SEC
[2020-11-06 09:51] LABS: PTT LUPUS TYPE ANTICOAG SCREEN 1.1 (0-1.2)
== END ==
LOC: M WUC 09:24
PROVIDERS: ATTEND Physician Assistant Medical
DX: R56.9 Unspecified convulsions (principal); R21 Rash and other nonspecific skin eruption; M54.5 Low back pain; M54.2 Cervicalgia

== ENCOUNTER 2022-05-20 10:32 | Emergency (ER) | payer MEDICAID, OTHER ==
[~2022-05-20] VITALS: Ht 154.9 cm; Wt 62.7 kg
[~2022-05-20 10:32] MED LIST changes: -ZONI100C17 PO; +ZONI100C67 PO
[2022-05-20] MEDS ORDERED: diphenhydrAMINE 50MG/ML VIAL IV STA (11:23)
[2022-05-20] MEDS ORDERED: METOCLOPRAMIDE INJ 10MG/2ML VIAL IV ONE (11:25)
[2022-05-20 11:40] LABS: BASO # 0.1 10^3/uL (0.0-0.2); BASO % 0.7 % (0.0-1.0); EOS # 0.3 10^3/uL (0.0-0.5); EOS % 3.5 % (0.0-3.0); HEMATOCRIT 38.1 % (36.0-47.0); LYMPH # 2.2 10^3/uL (1.5-5.0); LYMPH % 24.2 % (24.0-44.0); MEAN CORPUSCULAR HGB CONC 34.1 g/dl (32.0-36.5); MONO # 0.6 10^3/uL (0.0-0.8); MONO % 6.5 % (2.0-8.0); NEUTROPHILS % 64.7 % (36.0-66.0); PLATELET COUNT, AUTOMATED 331 10^3/uL (150-450); RED BLOOD COUNT 4.48 10^6/uL (4.00-5.40); WHITE BLOOD COUNT 9.2 10^3/uL (4.0-10.0)
[2022-05-20] MEDS: MORPHINE 4 MG/ML 1ML VIAL IV PRN ×2 (11:50→12:47)
[2022-05-20 12:11] LABS: BLOOD UREA NITROGEN 16 MG/DL (9-23); CALCIUM LEVEL 8.8 MG/DL (8.5-10.1); CARBON DIOXIDE LEVEL 29 MMOL/L (20-31); CHLORIDE LEVEL 108 MMOL/L (98-107); CREATININE FOR GFR 0.81 MG/DL (0.55-1.30); GLOMERULAR FILTRATION RATE > 60.0 (>58); GLUCOSE, FASTING 81 MG/DL (60-100); MAGNESIUM LEVEL 1.9 MG/DL (1.8-2.4); POTASSIUM SERUM 3.9 MMOL/L (3.5-5.1); SODIUM LEVEL 142 MMOL/L (136-145)
[2022-05-20 12:15] LABS: THYROID STIMULATING HORMONE 0.916 uIU/ML (0.55-4.78)
[2022-05-20 12:16] LABS: FREE T4 0.89 NG/DL (0.89-1.76)
[2022-05-20 15:00] VITALS: BP 115/70
== END 2022-05-20 15:09 | disposition home or self-care (01) ==
LOC: EDBD 10:32 → M ED 10:32
DX: G43.909 Migraine, unspecified, not intractable, without status migrainosus (principal); J45.909 Unspecified asthma, uncomplicated; D57.3 Sickle-cell trait; Z98.84 Bariatric surgery status; Z91.040 Latex allergy status; Z88.8 Allergy status to other drugs, medicaments and biological substances; Z79.899 Other long term (current) drug therapy
CPT/HCPCS: 70450; 70544; 70551; 80048; 83735; 84439; 84443; 85025; 93005; 93041; 94760; 96374; 96375; 99285; J1200; J2270; J2765

== ENCOUNTER → 2022-11-26 | Outpatient (CLI) | payer OTHER, MEDICAID ==
[~2022-11-26] MED LIST changes: +LORA-1041 PO; -LORA-674 PO; -PREG100C PO; +PREG100C2 PO; -PREG150C PO; +PREG150C2 PO
[2022-11-26 16:54] LABS: HEMATOCRIT 34.2 % (36.0-47.0); HEMOGLOBIN 11.2 g/dl (12.0-15.5); MEAN CORPUSCULAR HEMOGLOBIN 27.5 pg (27.0-33.0); MEAN CORPUSCULAR HGB CONC 32.7 g/dl (32.0-36.5); MEAN CORPUSCULAR VOLUME 83.8 fl (80.0-96.0); PLATELET COUNT, AUTOMATED 370 10^3/uL (150-450); RED BLOOD COUNT 4.08 10^6/uL (4.00-5.40); WHITE BLOOD COUNT 7.5 10^3/uL (4.0-10.0)
[2022-11-26 17:27] LABS: ALBUMIN 3.3 G/DL (3.2-5.2); ALKALINE PHOSPHATASE 115 U/L (46-116); ALT/SGPT 35 U/L (7.0-40); AST/SGOT 33 U/L (<34); BILIRUBIN,TOTAL 0.4 MG/DL (0.3-1.2); BLOOD UREA NITROGEN 10 MG/DL (9-23); CALCIUM LEVEL 8.8 MG/DL (8.5-10.1); CARBON DIOXIDE LEVEL 28 MMOL/L (20-31); CHLORIDE LEVEL 107 MMOL/L (98-107); GLOMERULAR FILTRATION RATE > 60.0 (>58); GLUCOSE, FASTING 39 MG/DL (60-100); POTASSIUM SERUM 3.8 MMOL/L (3.5-5.1); SODIUM LEVEL 143 MMOL/L (136-145)
== END ==
LOC: M WUC 10:19
PROVIDERS: ATTEND Student in an Organized Health Care Education/Training Program
DX: R22.9 Localized swelling, mass and lump, unspecified (principal)

== ENCOUNTER → 2024-10-05 | Outpatient (CLI) | payer OTHER, MEDICAID ==
[~2024-10-05] MED LIST changes: -AMBI5TAB PO; -PROZ20CA11 PO; +PROZ20CA12 PO; +ZOLP-532 PO
== END ==
LOC: M WUC 12:38
PROVIDERS: ATTEND Physician Assistant Medical
DX: M25.532 Pain in left wrist (principal)